=== PATIENT | female | born 1955 | race Caucasian/White ===

== ENCOUNTER 2018-08-03 22:29 | Inpatient (IN) | payer BC, OTHER ==
[~2018-08-03] VITALS: Ht 154.9 cm; Wt 65.3 kg
[2018-08-03] MEDS ORDERED: AMLO5TAB9 (23:15)
[2018-08-03] MEDS ORDERED: BENA20TA7 (23:15)
--- NOTE | 2018-08-03 23:22 | ED Cough/URI ---
General Chief Complaint: Fever-Adult/Adol Stated Complaint: LOW BLOOD PRESSURE,FEVER Source: patient Exam Limitations: no limitations History of Present Illness Date Seen by Provider: Aug 03, 2018 Time Seen by Provider: 23:12 Initial Comments The patient resents to ER by private conveyance with chief complaint of feeling faint today nearly passing out according to her significant other. She also had a fever of 101 per her to the gave Tylenol. And then they checked her blood pressure and found it to be low when they stood her up and got even lower down to the 70 systolic range so they decided to come and get checked out. Her fever did go away with Tylenol. She's had an occasional dry cough. No wheezing or shortness of breath. No chest pain. She does have some nausea but no vomiting. No diarrhea or constipation. Last bowel movement was yesterday normal formed. She did have a sick exposure to a nephew who had RSV all last week. Allergies and Home Medications Allergies Coded Allergies: No Known Drug Allergies (Unverified , 08/03/18) Patient Home Medication List Home Medication List Reviewed: Yes Review of Systems Review of Systems Constitutional: No chills, No fever; malaise EENTM: No ear discharge, No ear pain, No blurred vision, No dental problems Respiratory: No cough, No short of breath Cardiovascular: No chest pain, No edema Gastrointestinal: No abdominal pain, No constipation, No nausea, No vomiting Musculoskeletal: No back pain, No joint pain Past Yolgdog-Gpfkvv-Oytihy Hx Patient Social History Alcohol Use: Rarely Uses Recreational Drug Use: No Smoking Status: Never a Smoker 2nd Hand Smoke Exposure: No Recent Foreign Travel: No Contact w/Someone Who Travel: No Recent Hopitalizations: No Immunizations Up To Date Tetanus Booster (TDap): Unknown Seasonal Allergies Seasonal Allergies: No Past Medical History Surgeries: Yes Abdominal, Brain Shunt, Section, Eye Surgery, Neurological Respiratory: No Cardiac: Yes Hypertension Neurological: Yes Brain Tumor, Neuropathy, Spinal Cord Injury Genitourinary: No Gastrointestinal: Yes Gastroesophageal Reflux, Ulcer, Gall Bladder Disease Musculoskeletal: No Endocrine: No HEENT: No Cancer: Yes Brain Did You Recieve Any Treatments: Yes What Type of Treatment Did You: Surgical Intervention Psychosocial: No Integumentary: No Blood Disorders: No Physical Exam Vital Signs - First Documented 08/03/18 23:04 Temp 98.1 Pulse 99 Resp 18 B/P (MAP) 118/55 (76) Pulse Ox 100 O2 Delivery Room Air Capillary Refill : Height: '" Weight: lbs. oz. kg; BMI Method: General Appearance: WD/WN, no apparent distress Eyes: Bilateral Eye Normal Inspection, Bilateral Eye PERRL, Bilateral Eye EOMI HEENT: TMs normal, pharynx normal, other (chronic right facial droop and right thigh [place]) Neck: non-tender, full range of motion, supple, normal inspection Respiratory: chest non-tender, lungs clear, normal breath sounds, no respiratory distress, no accessory muscle use Cardiovascular: normal peripheral pulses, regular rate, rhythm Gastrointestinal: normal bowel sounds, non tender, soft Extremities: normal range of motion, non-tender, normal inspection, no pedal edema, normal capillary refill Neurologic/Psychiatric: alert, normal mood/affect, oriented x 3 Skin: normal color, warm/dry Focused Exam Lactate Level 08/03/18 23:45: Lactic Acid Level 1.78 Lactic Acid Level Laboratory Tests Test 08/03/18 23:45 Lactic Acid Level 1.78 MMOL/L (0.50-2.00) Progress/Results/Core Measures Suspected Sepsis SIRS Temperature: Pulse: Respiratory Rate: Laboratory Tests 08/03/18 23:45: White Blood Count 22.9H Blood Pressure / Mean: 08/03/18 23:45: Lactic Acid Level 1.78 Laboratory Tests 08/03/18 23:45: Creatinine 1.40H, Platelet Count 353, Total Bilirubin 2.2H Results/Orders Lab Results Laboratory Tests Test 08/03/18 23:45 08/04/18 00:47 Range/Units White Blood Count 22.9 H 4.3-11.0 10^3/uL Red Blood Count 4.55 4.35-5.85 10^6/uL Hemoglobin 14.1 11.5-16.0 G/DL Hematocrit 41 35-52 % Mean Corpuscular Volume 90 80-99 FL Mean Corpuscular Hemoglobin 31 25-34 PG Mean Corpuscular Hemoglobin Concent 34 32-36 G/DL Red Cell Distribution Width 12.7 10.0-14.5 % Platelet Count 353 130-400 10^3/uL Mean Platelet Volume 9.4 7.4-10.4 FL Neutrophils (%) (Auto) 94 H 42-75 % Lymphocytes (%) (Auto) 3 L 12-44 % Monocytes (%) (Auto) 3 0-12 % Eosinophils (%) (Auto) 0 0-10 % Basophils (%) (Auto) 0 0-10 % Neutrophils # (Auto) 21.6 H 1.8-7.8 X 10^3 Lymphocytes # (Auto) 0.7 L 1.0-4.0 X 10^3 Monocytes # (Auto) 0.6 0.0-1.0 X 10^3 Eosinophils # (Auto) 0.0 0.0-0.3 10^3/uL Basophils # (Auto) 0.0 0.0-0.1 10^3/uL Neutrophils % (Manual) 94 % Lymphocytes % (Manual) 3 % Monocytes % (Manual) 1 % Band Neutrophils 2 % Blood Morphology Comment NORMAL Sodium Level 134 L 135-145 MMOL/L Potassium Level 3.9 3.6-5.0 MMOL/L Chloride Level 103 98-107 MMOL/L Carbon Dioxide Level 19 L 21-32 MMOL/L Anion Gap 12 5-14 MMOL/L Blood Urea Nitrogen 27 H 7-18 MG/DL Creatinine 1.40 H 0.60-1.30 MG/DL Estimat Glomerular Filtration Rate 38 BUN/Creatinine Ratio 19 Glucose Level 146 H 70-105 MG/DL Lactic Acid Level 1.78 0.50-2.00 MMOL/L Calcium Level 10.1 8.5-10.1 MG/DL Corrected Calcium 10.2 H 8.5-10.1 MG/DL Total Bilirubin 2.2 H 0.1-1.0 MG/DL Aspartate Amino Transf (AST/SGOT) 26 5-34 U/L Alanine Aminotransferase (ALT/SGPT) 30 0-55 U/L Alkaline Phosphatase 74 40-136 U/L C-Reactive Protein High Sensitivity 7.17 H 0.00-0.50 MG/DL Total Protein 6.7 6.4-8.2 GM/DL Albumin 3.9 3.2-4.5 GM/DL Urine Color YELLOW Urine Clarity CLEAR Urine pH 5 5-9 Urine Specific [place] 1.015 L 1.016-1.022 Urine Protein 1+ H NEGATIVE Urine Glucose (UA) NEGATIVE NEGATIVE Urine Ketones NEGATIVE NEGATIVE Urine Nitrite NEGATIVE NEGATIVE Urine Bilirubin NEGATIVE NEGATIVE Urine Urobilinogen NORMAL NORMAL MG/DL Urine Leukocyte Esterase 2+ H NEGATIVE Urine RBC (Auto) NEGATIVE NEGATIVE Urine RBC NONE /HPF Urine WBC 0-2 /HPF Urine Squamous Epithelial Cells 10-25 H /HPF Urine Crystals NONE /LPF Urine Bacteria TRACE /HPF Urine Casts PRESENT /LPF Urine Hyaline Casts 5-10 H /LPF Urine Mucus MODERATE H /LPF Urine Culture Indicated NO Micro Results Microbiology 08/03/18 Influenza Types A,B Antigen (PAN) - Final, Complete My Orders Orders - PEDRO JACQUES Orthostatic Vital Signs (Adult (08/03/18 23:19) Influenza A And B Antigens (08/03/18 23:19) Ondansetron Oral Dissolve Tab (Zofran (08/03/18 23:30) Saline Lock/Iv-Start (08/03/18 23:31) Ns Iv 1000 Ml (Sodium Chloride 0.9%) (08/03/18 23:45) Cbc With Automated Diff (08/03/18 23:31) Comprehensive Metabolic Panel (08/03/18 23:31) Hs C Reactive Protein (08/03/18 23:31) Ua Culture If Indicated (08/03/18 23:31) Blood Culture (08/03/18 23:33) Lactic Acid Analyzer (08/03/18 23:33) Ibuprofen Tablet (Motrin Tablet) (08/03/18 23:45) Manual Differential (08/03/18 23:45) Chest Pa/Lat (2 View) (08/04/18 01:11) Cefepime Injection (Maxipime Injection) (08/04/18 02:30) Medications Given in ED Current Medications Medications Dose Ordered Sig/Chucky Route Start Time Stop Time Status Last Admin Dose Admin Ibuprofen 800 mg ONCE ONCE PO 08/03/18 23:45 08/03/18 23:46 DC 08/03/18 23:49 800 MG Ondansetron HCl 4 mg ONCE ONCE PO 08/03/18 23:30 08/03/18 23:31 DC 08/03/18 23:49 4 MG Sodium Chloride 1,500 ml @ 1,500 mls/hr ONCE ONCE IV 08/03/18 23:45 08/04/18 00:45 DC 08/03/18 23:48 1,500 MLS/HR Vital Signs/I&O 08/03/18 2 23:04 23:30 Temp 98.1 Pulse 99 91 90 108 Resp 18 B/P (MAP) 118/55 (76) 94/73 (80) 89/57 (68) 88/56 (67) Pulse Ox 100 O2 Delivery Room Air Capillary Refill : Progress Note : Time: 02:24 Progress Note Orthostatic vital signs were positive we gave a 30 mL/kg bolus 2 L. Her blood pressure still soft but she's feeling better. Her headache is improved after some ibuprofen. Chest x-ray urine and labs are unrevealing except for possible acute kidney injury however I don't what her baseline is. Her leukocytosis is likely from a virus. She is not really getting any historical clues or physical exam signs. Given her frailty we would just plan to start some cefepime and observe her. We'll keep her fluids going at 1-1/2 times maintenance IV rate. Diagnostic Imaging Diagonstic Imaging: Xray Plain Films/CT/US/NM/MRI: chest (2 view) Comments No acute cardio pulmonary processes noted a 2 view chest x-ray. Reviewed: Reviewed by Me Departure Communication (Admissions) Time/Spoke to Admitting Phy: 02:15 Discussed case lab imaging findings with Dr. Taylor. We are going to put the patient on cefepime IV fluids at 1-1/2 times maintenance and observe her overnight. Impression Primary Impression: Near syncope Additional Impressions: Orthostatic hypotension Sepsis Qualified Codes: A41.9 - Sepsis, unspecified organism Disposition: ADMITTED INPATIENT Condition: Stable Admissions Decision to Admit Reason: Admit from ER (General) Decision to Admit/Date: Aug 04, 2018 Time/Decision to Admit Time: 02:17 Departure-Patient Inst. Referrals: TOBY VAZQUEZ DO (PCP/Family) Primary Care Physician PEDRO JACQUES Aug 03, 2018 23:22
[2018-08-03 23:30] VITALS: BP_SYST 88; BP_SYST 89; BP_SYST 94; BP_DIAS 56; BP_DIAS 57; BP_DIAS 73
[2018-08-03] MEDS ORDERED: ONDANSETRON 4 MG (ZOFRAN) ORAL DISSOLVE TAB PO ONE (23:30)
[2018-08-03] MEDS ORDERED: NS IV 1000 ML 1,500 ML IV ONE (23:45)
[2018-08-03] MEDS ORDERED: IBUPROFEN 800 MG (MOTRIN) TAB PO ONE (23:45)
[2018-08-03 23:59] LABS: BASOPHILS % (AUTO) 0 % (0-10); EOSINOPHILS % (AUTO) 0 % (0-10); HEMATOCRIT 41 % (35-52); HEMOGLOBIN 14.1 G/DL (11.5-16.0); LYMPHOCYTES # (AUTO) 0.7 X 10^3 (1.0-4.0); LYMPHOCYTES % (AUTO) 3 % (12-44); MEAN CORPUSCULAR HEMOGLOBIN 31 PG (25-34); MEAN CORPUSCULAR HGB CONC 34 G/DL (32-36); MEAN CORPUSCULAR VOLUME 90 FL (80-99); MEAN PLATELET VOLUME 9.4 FL (7.4-10.4); MONOCYTES # (AUTO) 0.6 X 10^3 (0.0-1.0); MONOCYTES % (AUTO) 3 % (0-12); NEUTROPHILS # (AUTO) 21.6 X 10^3 (1.8-7.8); NEUTROPHILS % (AUTO) 94 % (42-75); PLATELET COUNT 353 10^3/uL (130-400); RED CELL DISTRIBUTION WIDTH 12.7 % (10.0-14.5); WHITE BLOOD COUNT 22.9 10^3/uL (4.3-11.0)
[2018-08-04] VITALS (27 sets, daily range): BP systolic 85–116; BP diastolic 42–74
[2018-08-04 00:15] LABS: BAND NEUTROPHILS 2 %; LYMPHOCYTES % (MANUAL) 3 %; MONOCYTES % (MANUAL) 1 %; NEUTROPHILS % (MANUAL) 94 %; RBC MORPH NORMAL
[2018-08-04 00:19] LABS: ALBUMIN 3.9 GM/DL (3.2-4.5); BILIRUBIN,TOTAL 2.2 MG/DL (0.1-1.0); CALCIUM 10.1 MG/DL (8.5-10.1); CREATININE SERUM 1.4 MG/DL (0.60-1.30); POTASSIUM 3.9 MMOL/L (3.6-5.0); TOTAL PROTEIN 6.7 GM/DL (6.4-8.2)
--- NOTE | 2018-08-04 00:30 | NUR ---
PT'S PARENT INFORMED OF ANTICIPATED WAIT TIME.
[2018-08-04 00:55] LABS: BILIRUBIN,URINE NEGATIVE (NEGATIVE); CLARITY,URINE CLEAR; COLOR,URINE YELLOW; GLUCOSE, URINE (UA) NEGATIVE (NEGATIVE); KETONES,URINE NEGATIVE (NEGATIVE); LEUKOCYTE ESTERASE ,URINE 2+ (NEGATIVE); NITRITE,URINE NEGATIVE (NEGATIVE); PH,URINE 5 (5-9); PROTEIN,URINE 1+ (NEGATIVE); UROBILINOGEN,URINE NORMAL (NORMAL)
[2018-08-04 01:02] LABS: BACTERIA,URINE TRACE /HPF; WBC,URINE 0-2 /HPF
[2018-08-04] MEDS ORDERED: CEFEPIME INJECTION 1,000 MG in WATER (STERILE) FOR INJECTION 10 ML IV ONE (02:30)
[2018-08-04] MEDS ORDERED: NS W/KCL 20 MEQ/L 1,000 ML IV ONE (02:43)
--- NOTE | 2018-08-04 02:54 | NUR ---
WHIT SALAS admitted to room CU8-1, with an admitting diagnosis of Near syncope,orthostatic hypotension,Sepsis on 08/04/18 from ED via wc, accompanied by .WHIT SALAS introduced to surroundings, call light, bed controls, phone, TV, temperature control, lights, meal times, smoking policy, visitor policy, side rail policy, bathrooms and showers. Patient Rights given to patient in the handbook. WHIT SALAS verbalizes understanding that [facility] is not responsible for the loss or damage to any personal effects or valuables that are kept in the patients possession during their hospitalization. The following Patient Care Plans were discussed with the : Discharge Planning, pain,activity, and room orientating. WHIT SALAS verbalizes understanding of Interdisciplinary Patient Education. Patient and/or family were informed about the Rapid Response Team and its purpose.
[2018-08-04 03:35] LABS: BASOPHILS % (AUTO) 0 % (0-10); EOSINOPHILS # (AUTO) 0.2 10^3/uL (0.0-0.3); EOSINOPHILS % (AUTO) 1 % (0-10); HEMATOCRIT 35 % (35-52); HEMOGLOBIN 11.6 G/DL (11.5-16.0); LYMPHOCYTES # (AUTO) 0.8 X 10^3 (1.0-4.0); LYMPHOCYTES % (AUTO) 4 % (12-44); MEAN CORPUSCULAR HEMOGLOBIN 31 PG (25-34); MEAN CORPUSCULAR HGB CONC 34 G/DL (32-36); MEAN CORPUSCULAR VOLUME 92 FL (80-99); MEAN PLATELET VOLUME 9.3 FL (7.4-10.4); MONOCYTES # (AUTO) 0.6 X 10^3 (0.0-1.0); MONOCYTES % (AUTO) 3 % (0-12); NEUTROPHILS # (AUTO) 18.8 X 10^3 (1.8-7.8); NEUTROPHILS % (AUTO) 93 % (42-75); PLATELET COUNT 267 10^3/uL (130-400); RED CELL DISTRIBUTION WIDTH 12.8 % (10.0-14.5); WHITE BLOOD COUNT 20.4 10^3/uL (4.3-11.0)
[2018-08-04 03:52] LABS: CALCIUM 8.6 MG/DL (8.5-10.1); CREATININE SERUM 1.12 MG/DL (0.60-1.30); POTASSIUM 4.3 MMOL/L (3.6-5.0)
--- NOTE | 2018-08-04 05:24 | Pulmonary Consultation ---
History of Present Illness History of Present Illness Date of Consultation 08/04/18 05:18 Time Seen by Provider: 05:18 Date of Admission History of Present Illness 63yo presented to ED secondary to syncope, fever, nausea and erythematous rash. PT did not hit her head. no previous episodes like this. Denies CP, SOB, No vomiting or Diarrhea. Recent exposure to nephew with RSV. Since ICU admission pt has had hypotension with SBP in the upper 80's, 90's. Allergies and Home Medications Allergies Coded Allergies: No Known Drug Allergies (Unverified , 08/03/18) Past Ngknrur-Vrzjvs-Eultaj Hx Patient Social History Alcohol Use: Rarely Uses Recreational Drug Use: No Smoking Status: Never a Smoker 2nd Hand Smoke Exposure: No Recent Foreign Travel: No Contact w/Someone Who Travel: No Recent Infectious Disease Expo: No Recent Hopitalizations: No Immunizations Up To Date Tetanus Booster (TDap): Unknown Date of Influenza Vaccine: Feb 11, 2018 Seasonal Allergies Seasonal Allergies: No Past Medical History Surgeries: Yes Abdominal, Brain Shunt, Section, Eye Surgery, Neurological Respiratory: No Cardiac: Yes Hypertension Neurological: Yes Brain Tumor, Neuropathy, Spinal Cord Injury : No Genitourinary: No Gastrointestinal: Yes Gastroesophageal Reflux, Ulcer, Gall Bladder Disease Musculoskeletal: No Endocrine: No HEENT: No Cancer: Yes Brain Did You Recieve Any Treatments: Yes What Type of Treatment Did You: Surgical Intervention Psychosocial: No Integumentary: No Blood Disorders: No Family Medical History Diabetes mellitus 19 MOTHER, Onset:60 years & older FH: macular degeneration 19 MOTHER, Onset:60 years & older FH: skin cancer 19 FATHER, , Onset:60 years & older Hypertension 19 MOTHER, Onset:Unknown G8 BROTHER, Onset:Unknown G8 SISTER, Onset:Unknown Sepsis Event Evaluation Height, Weight, BMI Height: 5'1.00" Weight: 139lbs. 1.0oz. 63.668289la; 26.0 BMI Method:Stated Exam Exam Vital Signs Date Time Temp Pulse Resp B/P (MAP) Pulse Ox O2 Delivery O2 Flow Rate FiO2 08/04/18 04:00 68 15 98/74 (82) 95 Room Air 08/04/18 03:30 97 Room Air 08/04/18 03:26 97 Room Air 08/04/18 03:24 99.0 70 14 107/42 97 Room Air 08/04/18 03:06 70 08/04/18 03:00 99.0 70 14 107/42 (63) 97 Room Air 08/04/18 02:44 97.2 71 18 102/66 (78) 97 Room Air 08/03/18 23:30 91 94/73 (80) 90 89/57 (68) 108 88/56 (67) 08/03/18 23:04 98.1 99 18 118/55 (76) 100 Room Air I & O 08/04/18 07:00 Intake Total 1510 ml Output Total 250 ml Balance 1260 ml Height & Weight Height: 5'1.00" Weight: 139lbs. 1.0oz. 63.191246xr; 26.0 BMI Method:Stated General Appearance: Anxious Capillary Refill: Less Than 3 Seconds Gastrointestinal: normal bowel sounds, non tender, soft Results Lab Laboratory Tests 08/03/18 23:45 08/04/18 03:28 Assessment/Plan Assessment/Plan SIRS r/o Sepsis - doubt PNA, - probably viral etiology -Continue Cefepime for now -Change to inpatient ICU status -Arriaga cultures pending -MRSA swab, influenza is negative -check urine strep, and Nausea - no abdominal pain -Check RUQ US Acute renal failure with metabolic acidosis -IVF -Monitor Hypotension probably secondary to dehydration -Give another liter bolus of LR x 1 now Erythematous pleuritic rash with some petechia from chest down to legs- probably secondary to viral etiology -Will start solumedrol, Benadryl, Pepcid for possible anaphylactic reaction -pt denies dysphagia Hx of benign acoustic neuroma LORRAINE ELLIS DO Aug 04, 2018 05:24
[2018-08-04] MEDS: NS IV 1000 ML 1,000 ML IV SCH ×5 (05:27→20:15)
[2018-08-04] MEDS: NOREPINEPHRINE 4 MG in NS (IVPB) 250 ML IV SCH ×2 (05:27→19:20)
[2018-08-04] MEDS: NS W/KCL 20 MEQ/L 1,000 ML IV SCH ×4 (05:28→22:23)
[2018-08-04] MEDS ORDERED: NS IV ONE (05:30)
[2018-08-04] MEDS ORDERED: methylPREDNISolone 125 MG (Solu-MEDROL) VIAL IV ONE (05:30)
[2018-08-04] MEDS ORDERED: LACTATED RINGERS 1,000 ML IV SCH (05:30)
[2018-08-04] MEDS ORDERED: diphenhydrAMINE 50 MG/ML INJ (BENADRYL) ONE (05:33)
[2018-08-04] MEDS ORDERED: methylPREDNISolone 125 MG (Solu-MEDROL) VIAL ONE (05:33)
[2018-08-04] MEDS ORDERED: FAMOTIDINE 20MG/2ML IV (PEPCID) ONE (05:34)
[2018-08-04] MEDS: diphenhydrAMINE 50 MG/ML INJ (BENADRYL) IVP SCH ×3 (05:42→17:14)
[2018-08-04] MEDS: FAMOTIDINE 20MG/2ML IV (PEPCID) IVP SCH ×2 (05:42→20:21)
[2018-08-04] MEDS ORDERED: methylPREDNISolone 40 MG/ML (Solu-MEDROL) VIAL IV SCH ×2 (06:00→11:30)
[2018-08-04] MEDS: MAGNESIUM 1 GM/100 ML IVPB 100 ML IV SCH (06:17)
[2018-08-04] MEDS: POTASSIUM CL 10MEQ/50ML IVPB 50 ML IV SCH (06:17)
[2018-08-04] MEDS: KCL 20 MEQ TAB (K-DUR) PO SCH (06:17)
[2018-08-04 06:31] LABS: FREE T4 (FREE THYROXINE) 1.09 NG/DL (0.70-1.48)
--- NOTE | 2018-08-04 06:57 | Diagnostic Imaging Report ---
INDICATION: Fever COMPARISON: None. FINDINGS: Frontal and lateral views the chest demonstrate clear lungs bilaterally. The heart size is normal. There is no pneumothorax. Osseous structures are normal. SHAPER SETTER shunt line is seen on the left. IMPRESSION: No acute findings. Normal chest. Dictated by: Dictated on workstation # [id number]
--- NOTE | 2018-08-04 08:00 | NUR ---
CALLED DR ELLIS TO REPORT LOW BP'S, SEE FLOWSHEET, MAP LESS THAN 65. HE GAVE AN ORDER FOR A ONE TIME BOLUS OF LR, SHE RESPONDED WELL TO IT. MAPS GREATER THAN 65. CORRESPONDED WITH DR ELLIS AT 1040 DUE TO BP BEING 85/50. PATIENT IS ALERT GCS 15. NO COMPLAINTS. RESTING ON ROOM AIR. DR ELLIS ORDERED ANOTHER LITER OF LR, START SOLUCORTEF 100MG Q6 AND ORDERED A LACTIC ACID. WILL CONTINUE TO MONITOR.
[2018-08-04] MEDS: CEFEPIME INJECTION 1,000 MG in WATER (STERILE) FOR INJECTION 10 ML IV SCH ×3 (09:38→20:21)
[2018-08-04] MEDS: LACTATED RINGERS 1,000 ML IV SCH ×2 (10:51→20:15)
[2018-08-04] MEDS ORDERED: BENA20TA7 PO (11:07)
[2018-08-04] MEDS ORDERED: LIFI1DRO OU (11:07)
[2018-08-04] MEDS: HYDROCORTISONE 100 MG/2 ML (Solu-CORTEF) VIAL IV SCH ×2 (11:08→17:35)
[2018-08-04] MEDS ORDERED: AMLO5TAB9 PO (11:08)
--- NOTE | 2018-08-04 11:10 | History & Physical-Hospitalist ---
History of Present Illness HPI/Chief Complaint Mrs. Singletary is a 63-year-old white female who reported that she felt well when she went to bed Sunday evening. She woke up Sunday feeling quite weak. She went to the bathroom feeling feverish and reporting some myalgia with low-grade headache. We'll standing at the sink became faint and passed out. Her was there was able to help her to the ground such that there was no reported trauma. There was no reported seizure-type activity. A family member is I believe intensive care unit nurse and they did get blood pressures which were in the 70-80 systolic range. She noted feeling itchy as well and by the afternoon had noted a rash on her chest and abdomen spreading down to her thighs. She reportedly had a temperature of 101 with some mild chills but denied Reiger's. Blood pressure continued to be low and she finally consented to being brought to the emergency room where was noted that she was hypotensive with a white count of 22,000 and left shift. She apparently had exposure to an infant diagnosed with RSV roughly 7-10 days ago that did require hospitalization. She's not aware of any other sick contacts. 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 She's had no previous history of TRANSIT SPECIALIST shunt infection and denied any problems with pain around her shunt. 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 She's had no previous problems infection and reports that she had been in her usual state of health with stable neurologic status prior to Sunday evening. Date Seen 08/04/18 Time Seen by a Provider: 07:30 Attending Physician Pepe Taylor MD PCP Rochelle Chavarria DO Referring Physician Date of Admission Aug 04, 2018 at 02:35 Home Medications & Allergies Home Medications Reviewed patient Home Medication Reconciliation performed by pharmacy medication reconciliations coating technician and/or nursing. Patients Allergies have been reviewed. Allergies Allergies Coded Allergies No Known Drug Allergies (Unverified08/03/18) Past Ktpgpit-Muzyig-Hojvql Hx Past Med/Social Hx: Reviewed and Corrections made Patient Social History Alcohol Use: Rarely Uses Recreational Drug Use: No Smoking Status: Never a Smoker 2nd Hand Smoke Exposure: No Recent Foreign Travel: No Contact w/other who traveled: No Recent Hopitalizations: No Recent Infectious Disease Expo: No Immunizations Up To Date Tetanus Booster (TDap): Unknown Date of Influenza Vaccine: Feb 11, 2018 Seasonal Allergies Seasonal Allergies: No Past Medical History Surgeries: Abdominal, Brain Shunt, Section, Eye Surgery, Neurological Cardiac: Hypertension Neurological: Brain Tumor, Neuropathy, Spinal Cord Injury : No Gastrointestinal: Gastroesophageal Reflux, Ulcer, Gall Bladder Disease Cancer: Brain Did You Recieve Any Treatments: Yes What Type of Treatment Did You: Surgical Intervention History of Blood Disorders: No Family History Diabetes mellitus 19 MOTHER, Onset:60 years & older FH: macular degeneration 19 MOTHER, Onset:60 years & older FH: skin cancer 19 FATHER, , Onset:60 years & older Hypertension 19 MOTHER, Onset:Unknown G8 BROTHER, Onset:Unknown G8 SISTER, Onset:Unknown Review of Systems Constitutional: chills, fever, malaise Respiratory: see HPI; No cough, No dyspnea on exertion, No hemoptysis, No orthopnea, No phlegm, No short of breath Cardiovascular: No chest pain, No edema, No Hx of Intervention, No palpitations , No syncope, No vascular heart diseas, No other Genitourinary: No dysuria; frequency (Reports this is chronic and no different than her norm.); No hematuria, No hesitancy, No incontinence, No pain, No other Physical Exam Physical Exam Vital Signs Vital Signs - First Documented 08/03/18 23:04 Temp 98.1 Pulse 99 Resp 18 B/P (MAP) 118/55 (76) Pulse Ox 100 O2 Delivery Room Air Capillary Refill : Less Than 3 Seconds Height, Weight, BMI Height: 5'1.00" Weight: 139lbs. 1.0oz. 63.284716ws; 26.0 BMI Method:Stated General Appearance: No Apparent Distress, WD/WN HEENT: Other (No tenderness noted over the TRANSIT SPECIALIST shunt right enucleation of the eye left eye unremarkable) Neck: Full Range of Motion, Normal Inspection Respiratory: Chest Non Tender, Lungs Clear, Normal Breath Sounds, No Accessory Muscle Use, No Respiratory Distress Cardiovascular: Regular Rate, Rhythm, No Edema, No Gallop, No JVD, No Murmur, Normal Peripheral Pulses Gastrointestinal: Normal Bowel Sounds, No Organomegaly, No Pulsatile Mass, Non Tender, Soft Extremity: Normal Capillary Refill, Normal Inspection, Normal Range of Motion, Non Tender, No Calf Tenderness, No Pedal Edema Skin: Rash (Erythematous maculopapular eruption spares the face palms and soles is: Resting over the back without evidence for ulceration probably involving the thighs in regards to lower extremity mucous membranes are not involved) Results Results/Procedures Labs Laboratory Tests 08/03/18 23:45 08/04/18 03:28 Patient resulted labs reviewed. Assessment/Plan Admission Diagnosis 1. Febrile illness with non-petechial rash most compatible with an underlying viral infection with secondary significant leukocytosis. The patient has no evidence for encephalitis meningitis or findings to suggest TRANSIT SPECIALIST shunt infection but will continue to monitor. 2. Syncope secondary to orthostatic hypotension aggravated by number 1 in individual on antihypertensive medication. 3. Acute kidney injury secondary to number 1 and 2 improved overnight with IV fluids will continue. 4. Hypertension we'll be holding antihypertensive medication unless the patient become significantly hypertensive. Admission Status: Inpatient Order (span 2 midnights) Reason for Inpatient Admission: See admission diagnosis Clinical Quality Measures DVT/VTE Risk/Contraindication: Risk Factor Score Per Nursin RFS Level Per Nursing on Admit: 2=Moderate Copy Copies To 1: ROCHELLE CHAVARRIA MARK D MD Aug 04, 2018 11:10
--- NOTE | 2018-08-04 11:11 | NUR ---
Patient had the Amlodipine and Benazepril. She states she took the eye drops. Matched external medication history.
--- NOTE | 2018-08-04 12:01 | NUR ---
corresponded to Dr Finnegan that patients lactic acid is elevated at 2.86. Addendum: 08/04/18 at 1217 by STEPHAN SAUER RN DR FINNEGAN ORDERED ONE MORE FLUID BOLUS AND TO MAINTAIN HER CURRENT FLUIDS AT 150CC/HR
[2018-08-04] MEDS: IBUPROFEN 800 MG (MOTRIN) TAB PO PRN (19:22)
[2018-08-05] VITALS (24 sets, daily range): BP systolic 111–151; BP diastolic 55–98
[2018-08-05] MEDS: diphenhydrAMINE 50 MG/ML INJ (BENADRYL) IVP SCH ×5 (00:09→23:18)
[2018-08-05] MEDS: HYDROCORTISONE 100 MG/2 ML (Solu-CORTEF) VIAL IV SCH ×5 (00:09→23:18)
[2018-08-05] MEDS: NS IV 1000 ML 1,000 ML IV SCH ×4 (00:34→13:41)
--- NOTE | 2018-08-05 01:30 | NUR ---
This proposal lead writer heard patient coughing from the hernandez, went in room to assess the patient at this time. Did elevate HOB and gave patient a drink of water.
[2018-08-05] MEDS: ACETAMINOPHEN 500 MG TAB (TYLENOL) PO PRN ×2 (02:00→17:50)
--- NOTE | 2018-08-05 02:02 | NUR ---
Patient called this group underwriter to the room, upon entering patient appears to be in distress rocking mildly back and forth in the bed saying that she is having shortness of breath. RR 18, O2 sat 100% on room air. Listened to patient lung sounds Posterior and Anterior, clear in all crockett. Patient stated that she just doesn't feel "right" and feels very sick. T 98.9, c/o headache 1000mg Tylenol administered. Call placed to the lab for am labs to be drawn early and Chest X-ray done at this time. Call to E ICU and spoke to Trang ZUÑIGA, explained situation to her and she will relay this report to Dr Epperson the E ICU Dr rendon.
--- NOTE | 2018-08-05 02:03 | NUR ---
Placed Pt on 2L oxygen by NC at this time.
[2018-08-05 02:20] LABS: BASOPHILS % (AUTO) 0 % (0-10); EOSINOPHILS % (AUTO) 0 % (0-10); HEMATOCRIT 29 % (35-52); LYMPHOCYTES # (AUTO) 0.6 X 10^3 (1.0-4.0); LYMPHOCYTES % (AUTO) 3 % (12-44); MEAN CORPUSCULAR HEMOGLOBIN 32 PG (25-34); MEAN CORPUSCULAR HGB CONC 35 G/DL (32-36); MEAN CORPUSCULAR VOLUME 92 FL (80-99); MEAN PLATELET VOLUME 9.2 FL (7.4-10.4); MONOCYTES # (AUTO) 0.7 X 10^3 (0.0-1.0); MONOCYTES % (AUTO) 3 % (0-12); NEUTROPHILS # (AUTO) 22.6 X 10^3 (1.8-7.8); NEUTROPHILS % (AUTO) 94 % (42-75); PLATELET COUNT 258 10^3/uL (130-400); RED CELL DISTRIBUTION WIDTH 13.1 % (10.0-14.5)
[2018-08-05] MEDS: CEFEPIME INJECTION 1,000 MG in WATER (STERILE) FOR INJECTION 10 ML IV SCH ×4 (02:24→22:08)
[2018-08-05] MEDS: LACTATED RINGERS 1,000 ML IV SCH (02:34)
[2018-08-05 02:40] LABS: BUN/CREATININE RATIO 17; CALCIUM 8.9 MG/DL (8.5-10.1); CARBON DIOXIDE 16 MMOL/L (21-32); CHLORIDE 118 MMOL/L (98-107); CREATININE SERUM 0.82 MG/DL (0.60-1.30); GFR ESTIMATED > 60; GLUCOSE 168 MG/DL (70-105); MAGNESIUM 1.5 MG/DL (1.8-2.4); POTASSIUM 4.2 MMOL/L (3.6-5.0); SODIUM 143 MMOL/L (135-145)
[2018-08-05] MEDS: MAGNESIUM 1 GM/100 ML IVPB 100 ML IV SCH ×3 (03:24→04:22)
[2018-08-05] MEDS: POTASSIUM CL 10MEQ/50ML IVPB 50 ML IV SCH (04:22)
[2018-08-05] MEDS: KCL 20 MEQ TAB (K-DUR) PO SCH (04:23)
[2018-08-05] MEDS ORDERED: POT PHOS/NA PHOS (K-PHOS NEUTRAL) PO ONE (04:30)
[2018-08-05] MEDS ORDERED: PHARMACY TO DOSE IV SCH (04:45)
[2018-08-05] MEDS ORDERED: SODIUM PHOSPHATE INJ 30 MM in NS (IVPB) 250 ML IV ONE (04:45)
[2018-08-05] MEDS ORDERED: MAGNESIUM 1 GM/100 ML IVPB 100 ML IV SCH (04:45)
--- NOTE | 2018-08-05 04:49 | Pulmonary Progress Note ---
Subjective Time Seen by a Provider: 07:35 Subjective/Events-last exam Hypotension now improved s/p aggressive IVF. Sepsis Event Evaluation Height, Weight, BMI Height: 5'1.00" Weight: 139lbs. 1.0oz. 63.036141hp; 26.0 BMI Method:Stated Focused Exam Lactate Level 08/03/18 23:45: Lactic Acid Level 1.78 08/04/18 11:25: Lactic Acid Level 2.86*H 08/04/18 13:25: Lactic Acid Level 1.81 Exam Exam Vital Signs Date Time Temp Pulse Resp B/P (MAP) Pulse Ox O2 Delivery O2 Flow Rate FiO2 08/05/18 03:25 96 Nasal Cannula 2.00 08/05/18 03:25 99.7 08/05/18 03:00 76 10 127/62 (83) 95 Nasal Cannula 2.00 08/05/18 02:03 Nasal Cannula 2.00 08/05/18 02:00 75 11 129/74 (92) 99 Room Air 08/05/18 01:59 98.9 08/05/18 01:00 78 08/05/18 01:00 78 11 115/57 (76) 94 Room Air 08/05/18 00:23 117/60 (79) 125/55 (78) 131/72 (91) 08/05/18 00:00 85 10 111/56 (74) 92 Room Air 08/04/18 23:35 99.1 08/04/18 23:10 97 Room Air 08/04/18 23:07 84 9 112/58 (76) 92 Room Air 08/04/18 22:00 88 18 116/60 (78) 92 Room Air 08/04/18 21:00 92 18 103/55 (71) 96 Room Air 08/04/18 20:00 98 Room Air 08/04/18 20:00 94 18 107/57 (74) 96 Room Air 08/04/18 19:15 100.2 95 12 108/65 (79) 97 Room Air 08/04/18 19:00 93 14 97 Room Air 08/04/18 19:00 93 08/04/18 17:20 87 22 106/48 (67) 93 Room Air 08/04/18 17:00 89 23 99/46 (63) 92 Room Air 08/04/18 16:00 98 Room Air 08/04/18 16:00 90 34 99/49 (66) 94 Room Air 08/04/18 15:00 86 11 100/54 (69) 94 Room Air 08/04/18 14:33 97.7 08/04/18 14:00 80 15 101/55 (70) 96 Room Air 08/04/18 13:08 87 08/04/18 13:00 86 11 116/51 (72) 93 Room Air 08/04/18 12:21 97.0 08/04/18 12:00 67 23 100/57 (71) 99 Room Air 08/04/18 12:00 98 Room Air 08/04/18 11:00 68 17 85/49 (61) 92 Room Air 08/04/18 10:00 75 17 85/47 (60) 96 Room Air 08/04/18 09:00 75 15 111/59 (76) 96 Room Air 08/04/18 08:22 65 18 95/56 (69) 98 Room Air 08/04/18 08:00 98 Room Air 08/04/18 07:09 71 08/04/18 07:00 66 23 90/52 (65) 96 Room Air 08/04/18 06:00 73 16 103/48 (66) 97 Room Air 08/04/18 05:30 66 16 90/45 (60) 99 Room Air 08/04/18 05:00 94 14 101/50 (67) 96 Room Air I & O 08/05/18 07:00 Intake Total 4070 ml Output Total 2800 ml Balance 1270 ml Height & Weight Height: 5'1.00" Weight: 139lbs. 1.0oz. 63.160127vu; 26.0 BMI Method:Stated General Appearance: No Apparent Distress, WD/WN HEENT: Other Neck: Full Range of Motion, Normal Inspection Respiratory: Chest Non Tender, Lungs Clear, Normal Breath Sounds, No Accessory Muscle Use, No Respiratory Distress Cardiovascular: Regular Rate, Rhythm, No Edema, No Gallop, No JVD, No Murmur, Normal Peripheral Pulses Capillary Refill: Less Than 3 Seconds Gastrointestinal: normal bowel sounds, non tender, soft Extremity: Normal Capillary Refill, Normal Inspection, Normal Range of Motion, Non Tender, No Calf Tenderness, No Pedal Edema Neurologic/Psychiatric: Alert Skin: Normal Color, Warm/Dry, Rash (Erythematous maculopapular eruption spares the face palms and soles is: Resting over the back without evidence for ulceration probably involving the thighs in regards to lower extremity mucous membranes are not involved) Lymphatic: No Adenopathy Results Lab Laboratory Tests 08/03/18 23:45 08/04/18 03:28 08/05/18 02:12 Assessment/Plan Assessment/Plan Severe Sepsis - doubt PNA, -Continue Cefepime, vancomycin -Arriaga cultures pending -MRSA swab, influenza is negative - urine strep, and legionella Ag is negative Nausea - no abdominal pain - RUQ US pending Hypotension -Now improved after aggressive IVF yesterday -Monitor Acute renal failure with metabolic acidosis -IVF -Monitor Erythematous pleuritic rash with some petechia from chest down to legs- probably secondary to viral etiology -solumedrol, Benadryl, Pepcid for possible anaphylactic reaction -pt denies dysphagia 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 Hx of benign acoustic neuroma LORRAINE ELLIS DO Aug 05, 2018 04:49
[2018-08-05] MEDS ORDERED: VANCOMYCIN INJECTION 1,000 MG in NS (IVPB) 250 ML IV SCH (05:00)
[2018-08-05] MEDS ORDERED: VANCOMYCIN INJECTION 1GM (OMNI 250 ML IV ONE ×2 (05:16→05:17)
[2018-08-05] MEDS ORDERED: VANCOMYCIN 1000 MG/VIAL ONE (05:17)
[2018-08-05] MEDS ORDERED: NS (IVPB) 250 ML ONE (05:17)
[2018-08-05] MEDS ORDERED: VANCOMYCIN 500 MG/NS 100 ML IV NR ×2 (06:48)
--- NOTE | 2018-08-05 06:56 | NUR ---
PHARMACY TO DOSE VANCOMYCIN: BASED ON IBW 54.5 & SCr 1; EST CrCl 54 LOADING DOSE: 1,500 MG ([address] ELLIS + ADDITIONAL 500 MG ORDERED BY PHARMACY) MAIN. DOSE: 1,000 MG DAILY VANCOMYCIN TROUGH ORDERED FOR 08/08/18 06:00. IF TROUGH IS GREATER THAN 20 HOLD 08/08/18 07:00 DOSE.
--- NOTE | 2018-08-05 07:04 | Diagnostic Imaging Report ---
CLINICAL INDICATION: Patient with dyspnea. EXAM: Portable chest x-ray upright view. COMPARISONS: Chest x-ray dated 08/04/2018. FINDINGS: Lungs/pleura: Lungs are clear. There is no pneumothorax. There is no pleural effusion. Mediastinum: Unremarkable. Pulmonary vasculature: Unremarkable. Heart: Unremarkable. Bones/extrathoracic soft tissue: There are small degenerative spurs involving the thoracic spine. IMPRESSION: There is no radiographic evidence of acute cardiopulmonary process. Dictated by: Dictated on workstation # [id number]
[2018-08-05] MEDS: NOREPINEPHRINE 4 MG in NS (IVPB) 250 ML IV SCH ×2 (08:08→22:09)
[2018-08-05] MEDS: FAMOTIDINE 20MG/2ML IV (PEPCID) IVP SCH ×2 (08:11→22:08)
--- NOTE | 2018-08-05 09:27 | Diagnostic Imaging Report ---
PROCEDURE: US abdomen complete. TECHNIQUE: Multiple real-time grayscale images were obtained over the abdomen in various projections. INDICATION: Sepsis, history of gallstones. FINDINGS: The gallbladder is normal. No stone or sludge. The biliary ducts are nondilated. Pancreas was obscured by bowel gas. The spleen partially obscured. The visualized portions of the aorta and IVC unremarkable. Kidneys bilaterally normal in size, cortical thickness and echotexture without obstruction. There is no ascites. There is no fluid collection. IMPRESSION: Unremarkable abdominal ultrasound. Dictated by: Dictated on workstation # [id number]
[2018-08-05] MEDS: ACYCLOVIR INJECTION 800 MG in NS (IVPB) 250 ML IV SCH ×2 (12:27→22:09)
[2018-08-05] MEDS ORDERED: KCL 10 MEQ TAB (MICRO K) PO NR (12:30)
[2018-08-05] MEDS ORDERED: FUROSEMIDE 40 MG/4 ML INJ (LASIX) IVP NR (12:30)
--- NOTE | 2018-08-05 15:53 | Physical Therapy Evaluation ---
PT Evaluation-General Medical Diagnosis Admission Date Aug 04, 2018 at 02:35 Medical Diagnosis: sepsis; syncopal episode Onset Date: Aug 03, 2018 Therapy Diagnosis Therapy Diagnosis: weakness; abn gait Height/Weight Height (Feet): 5 Height (Inches): 1.00 Weight (Pounds): 142 Weight (Ounces): 9.0 Precautions Precautions/Isolations: Fall Prevention, Standard Precautions Weight Bear Status Right Lower Extremity: Right Full Weight Bearing Left Lower Extremity: Left Full Weight Bearing Referral Physician: Sivan Reason for Referral: Evaluation/Treatment Medical History Pertinent Medical History: GERD, HTN Additional Medical History 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 Reviewed History: Yes Social History Home: Single Level Current Living Status: Spouse Entry Into Home: Stairs Without Railing Prior/Core FIM Prior Level of Function Therapy Code Descriptions/Definitions Functional [place] Measure: 0=Not Assessed/NA 4=Minimal Assistance 1=Total Assistance 5=Supervision or Setup 2=Maximal Assistance 6=Modified [place] 3=Moderate Assistance 7=Complete [place] Therapy Quality Codes: 6 Independent with activity with or without an assistive device 5 Patient requires set up or clean up by helper. Patient completes activity by themselves 4 Supervision or touching assist (CGA). [place] provide cues , steadying assist 3 The helper provides less than half the effort to complete the activity 2 The helper provides more than half the effort to complete the activity 1 Dependent. The helper does all the effort to complete an activity 7 Patient refused to complete or attempt activity 9 The patient did not perform the activity before the current illness or injury 88 Not attempted due to Medical conditions or safety concerns Functional Abilities and Goals: Independent: Patient completed the activities by him/herself, with or without an assistive device, with no assistance from a helper. Needed Some Help: Patient needed partial assistance from another person to complete activities. Dependent: A helper completed the activities for the patient. Unknown: Not Applicable: Bed Mobility: 7 Transfers (B,C,W/C) (FIM): 7 Gait: 7 (pt reports she tends to furniture walk and her balance/equilibrium has been bad since her surgery) Stairs: 5 Indoor Mobility (Ambulation): Independent Stairs: Needed Some Help Prior Devices Use: Walker (cane) pt reports she is active in her home and works outdoors as able. PT Evaluation-Current Subjective pt agreeable; wants to get up to walk Pain Numeric Pain Scale: 0-No Pain Location: No Pain Reported Objective Patient Orientation: Person, Place, Time, Situation Problem Solving: Fair ROM/Strength ROM Lower Extremities wNL Strength Lower Extremities WFL Integumentary/Posture Integumentary refer to nursing notes Bowel Incontinence: No Bladder Incontinence: No Neuromuscular (Tone, Coordination, Reflexes) impaired right due to longstanding surgical intervention Sensory Vision: blind right; Hearing: Functional Hand Dominance: Right Sensation Right Lower Extremit: Intact Sensation Left Lower Extremity: Intact Transfers Therapy Code Descriptions/Definitions Functional [place] Measure: 0=Not Assessed/NA 4=Minimal Assistance 1=Total Assistance 5=Supervision or Setup 2=Maximal Assistance 6=Modified [place] 3=Moderate Assistance 7=Complete [place] Transfers (B, C, W/C) (FIM): 4 (generally CGA for safety) Supine to/from Sit: 5 Sit to/from Stand: 4 bed t/f WC(FIM only if WC use): 4 transferred on/off toilet with SB-CGA. Gait Mode of Locomotion: Walk Anticipated Mode of Locomotion: Walk Gait (FIM): 4 Distance (FIM): 3=150 ft Distance: 200 ft Gait Level of Assist: 4 (CGA for safety) Gait Assistive Device: FWW Comments/Gait Description Pt walked with FWW without LOB; walks with a straight path; pt took steps in her room without the walker and is unsteady with gait without an AD. Balance Sitting Static: Good Sitting Dynamic: Good Standing Static: Fair Standing Dynamic: Fair Assessment/Needs Pt will benefit from short term skilled PT for safety training as well as gait training to progress her to ambulation without assist. Rehab Potential: Good PT Machine Operator General Goals Nursing Home Goals PT Machine Operator General Goals Time Frame: Aug 12, 2018 Transfers (B,C,W/C) (FIM): 7 Gait (FIM): 6 Gait distance (FIM): 3=150 ft Gait Assistive Device: FWW PT Plan Problem List Problem List: Activity Tolerance, Functional Strength, Safety, Balance, Gait, Transfer, Bed Mobility Treatment/Plan Treatment Plan: Continue Plan of Care Treatment Plan: Bed Mobility, Education, Functional Activity Catie, Functional Strength, Gait, Safety, Therapeutic Exercise, Transfers Treatment Duration: Aug 12, 2018 Frequency: 6 times per week Estimated Hrs Per Day: .25 hour per day Patient and/or Family Agrees t: Yes Safety Risks/Education Patient Education: Transfer Techniques, Safety Issues Teaching Recipient: Patient, Family Teaching Methods: Discussion Response to Teaching: Reinforcement Needed Time/GCodes Time In: 1530 Time Out: 1553 Total Billed Treatment Time: 23 Total Billed Treatment visit EVL 23 THOM ANDINO PT Aug 05, 2018 15:53
[2018-08-05] MEDS: IBUPROFEN 800 MG (MOTRIN) TAB PO PRN (16:30)
--- NOTE | 2018-08-05 16:30 | NUR ---
Pastoral care visit.
--- NOTE | 2018-08-05 17:15 | Diagnostic Imaging Report ---
PROCEDURE: MR imaging of the brain without contrast. TECHNIQUE: Multiplanar, multisequence MR imaging of the brain was performed without contrast. INDICATION: Elevated white blood cell count. COMPARISON: None available. FINDINGS: There is susceptibility artifact in the left parietal occipital region from the access port associated with the shunt catheter. Allowing for this artifact, no foci of restricted diffusion to indicate acute infarct. No hydrocephalus. No features of transependymal flow. Encephalomalacia involves the right posterior inferior cerebellum likely from old ischemic injury. No cerebellopontine angle mass. There is architectural distortion in the region of the right internal auditory canal likely from prior surgery. No abnormality in the left internal auditory canal. No sagging of the brainstem. Sella and suprasellar regions are normal in appearance. There are a few scattered periventricular and subcortical white matter T2/FLAIR hyperintensities which are age-appropriate and likely due to sequelae of chronic microvascular ischemic disease. The right globe is atrophic or absent with prosthesis in place. Chronic mucosal thickening of the left paranasal sinus. IMPRESSION: 1. 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 2. Postoperative changes in the right cerebellopontine angle with a large amount of encephalomalacia in the right cerebellar hemisphere, may be from old ischemic infarct or postop change. 3. No CP angle mass is present on the right and there may be soft tissue nodularity within the right internal auditory canal. Correlation with prior outside imaging would be beneficial to assess stability. Dictated by: Dictated on workstation # [id number]
--- NOTE | 2018-08-05 18:41 | Progress Note (SOAP) ---
Subjective Date Seen by a Provider: Aug 05, 2018 Time Seen by a Provider: 12:05 Subjective/Events-last exam Fwup acute sepsis, rash. Had hypotension overnight but is now orthopneic with some swelling in hands and has a new rash to the back of her neck. C/O HAWK intermittently. Focused Exam Lactate Level 08/03/18 23:45: Lactic Acid Level 1.78 08/04/18 11:25: Lactic Acid Level 2.86*H 08/04/18 13:25: Lactic Acid Level 1.81 Objective Exam Vital Signs Date Time Temp Pulse Resp B/P (MAP) Pulse Ox O2 Delivery O2 Flow Rate FiO2 08/05/18 17:00 74 19 131/76 (94) Nasal Cannula 2.00 08/05/18 16:00 99 Nasal Cannula 08/05/18 15:00 105 27 139/81 (100) Nasal Cannula 2.00 08/05/18 14:00 93 32 127/63 (84) Nasal Cannula 2.00 08/05/18 13:00 79 20 131/82 (98) 100 Nasal Cannula 2.00 08/05/18 12:47 90 08/05/18 12:00 99 Nasal Cannula 08/05/18 12:00 71 10 136/75 (95) 97 Nasal Cannula 2.00 08/05/18 12:00 97.5 08/05/18 11:00 73 9 127/66 (86) 96 Nasal Cannula 2.00 08/05/18 10:00 75 17 123/98 (106) 99 Nasal Cannula 2.00 08/05/18 09:00 73 9 138/78 (98) 98 Nasal Cannula 2.00 08/05/18 08:30 72 8 133/64 (87) 99 Nasal Cannula 2.00 08/05/18 08:20 Nasal Cannula 2.00 08/05/18 08:00 96 Nasal Cannula 2.00 08/05/18 08:00 97.7 81 15 129/66 (87) 99 Nasal Cannula 2.00 08/05/18 07:15 61 08/05/18 06:00 82 20 121/63 (82) 97 Nasal Cannula 2.00 08/05/18 05:00 73 20 121/62 (81) 96 Nasal Cannula 2.00 08/05/18 04:00 75 18 117/55 (75) 94 Nasal Cannula 2.00 08/05/18 03:25 96 Nasal Cannula 2.00 08/05/18 03:25 99.7 08/05/18 03:00 76 10 127/62 (83) 95 Nasal Cannula 2.00 08/05/18 02:03 Nasal Cannula 2.00 08/05/18 02:00 75 11 129/74 (92) 99 Room Air 08/05/18 01:59 98.9 08/05/18 01:00 78 08/05/18 01:00 78 11 115/57 (76) 94 Room Air 08/05/18 00:23 117/60 (79) 125/55 (78) 131/72 (91) 08/05/18 00:00 85 10 111/56 (74) 92 Room Air 08/04/18 23:35 99.1 08/04/18 23:10 97 Room Air 08/04/18 23:07 84 9 112/58 (76) 92 Room Air 08/04/18 22:00 88 18 116/60 (78) 92 Room Air 08/04/18 21:00 92 18 103/55 (71) 96 Room Air 08/04/18 20:00 98 Room Air 08/04/18 20:00 94 18 107/57 (74) 96 Room Air 08/04/18 19:15 100.2 95 12 108/65 (79) 97 Room Air 08/04/18 19:00 93 14 97 Room Air 08/04/18 19:00 93 I & O 08/05/18 07:00 Intake Total 4220 ml Output Total 3450 ml Balance 770 ml Capillary Refill : Less Than 3 Seconds General Appearance: No Apparent Distress Neck: Supple Respiratory: Crackles (bases) Cardiovascular: Regular Rate, Rhythm Gastrointestinal: normal bowel sounds, non tender, soft Extremity: Non Tender, No Calf Tenderness Neurologic/Psychiatric: Alert, Oriented x3 Skin: Warm/Dry, Other (fine pustules to back of neck) Results Lab Laboratory Tests 08/05/18 02:12: White Blood Count 24.0H, Red Blood Count 3.11L, Hemoglobin 10.0L, Hematocrit 29L , Mean Corpuscular Volume 92, Mean Corpuscular Hemoglobin 32, Mean Corpuscular Hemoglobin Concent 35, Red Cell Distribution Width 13.1, Platelet Count 258, Mean Platelet Volume 9.2, Neutrophils (%) (Auto) 94H, Lymphocytes (%) (Auto) 3L , Monocytes (%) (Auto) 3, Eosinophils (%) (Auto) 0, Basophils (%) (Auto) 0, Neutrophils # (Auto) 22.6H, Lymphocytes # (Auto) 0.6L, Monocytes # (Auto) 0.7, Eosinophils # (Auto) 0.0, Basophils # (Auto) 0.0, Sodium Level 143, Potassium Level 4.2, Chloride Level 118#H, Carbon Dioxide Level 16L, Anion Gap 9, Blood Urea Nitrogen 14, Creatinine 0.82, Estimat Glomerular Filtration Rate > 60, BUN/ Creatinine Ratio 17, Glucose Level 168H, Calcium Level 8.9, Phosphorus Level 1.0 *L, Magnesium Level 1.5L 08/05/18 15:33: Glucometer 240H Microbiology 08/04/18 Blood Culture - Preliminary, Resulted No growth 08/04/18 MRSA Screen - Final, Complete MRSA not isolated 08/04/18 Urine Culture - Final, Complete NO GROWTH Assessment/Plan Assessment/Plan Assess & Plan/Chief Complaint 1. Acute Sepsis--on Maxipime/Vanc and pancultures negative so far, may need LP due to shunt and ongoing elevated WBC count 2. Rash--lower extremity rash could have been drug induced as patient remembered she was taking amoxil prior to the onset of this rash but also viral etiology still a possibility 3. New Vesicular Rash to Nape of Neck--cover with zovirax, Check MRI as may need to consider LP 4. Hypotension--resolved after IVFs 5. Orthopnea/Edema of hands--low dose IV lasix x1 dose with potassium x1 dose Clinical Quality Measures DVT/VTE Risk/Contraindication: Risk Factor Score Per Nursin RFS Level Per Nursing on Admit: 2=Moderate TOBY VAZQUEZ DO Aug 05, 2018 18:41
[2018-08-05] MEDS: NS W/KCL 20 MEQ/L 1,000 ML IV SCH (22:09)
[2018-08-06] VITALS (13 sets, daily range): BP systolic 121–162; BP diastolic 63–90
[2018-08-06 03:59] LABS: BASOPHILS % (AUTO) 0 % (0-10); EOSINOPHILS % (AUTO) 0 % (0-10); HEMATOCRIT 30 % (35-52); LYMPHOCYTES # (AUTO) 0.7 X 10^3 (1.0-4.0); LYMPHOCYTES % (AUTO) 3 % (12-44); MEAN CORPUSCULAR HEMOGLOBIN 31 PG (25-34); MEAN CORPUSCULAR HGB CONC 33 G/DL (32-36); MEAN CORPUSCULAR VOLUME 94 FL (80-99); MEAN PLATELET VOLUME 9.9 FL (7.4-10.4); MONOCYTES # (AUTO) 0.8 X 10^3 (0.0-1.0); MONOCYTES % (AUTO) 4 % (0-12); NEUTROPHILS # (AUTO) 22.3 X 10^3 (1.8-7.8); NEUTROPHILS % (AUTO) 94 % (42-75); PLATELET COUNT 326 10^3/uL (130-400); RED CELL DISTRIBUTION WIDTH 13.5 % (10.0-14.5); WHITE BLOOD COUNT 23.8 10^3/uL (4.3-11.0)
[2018-08-06 04:14] LABS: BUN/CREATININE RATIO 22; CARBON DIOXIDE 21 MMOL/L (21-32); CHLORIDE 113 MMOL/L (98-107); CREATININE SERUM 0.83 MG/DL (0.60-1.30); GFR ESTIMATED > 60; GLUCOSE 120 MG/DL (70-105); MAGNESIUM 1.9 MG/DL (1.8-2.4); PHOSPHORUS 2.5 MG/DL (2.3-4.7); POTASSIUM 3.4 MMOL/L (3.6-5.0); SODIUM 143 MMOL/L (135-145)
--- NOTE | 2018-08-06 05:05 | Pulmonary Progress Note ---
Subjective Time Seen by a Provider: 05:11 Subjective/Events-last exam Pt appears to be doing better. Sepsis Event Evaluation Height, Weight, BMI Height: 5'1.00" Weight: 142lbs. 9.0oz. 64.088986il; 26.0 BMI Method:Stated Focused Exam Lactate Level 08/03/18 23:45: Lactic Acid Level 1.78 08/04/18 11:25: Lactic Acid Level 2.86*H 08/04/18 13:25: Lactic Acid Level 1.81 Exam Exam Vital Signs Date Time Temp Pulse Resp B/P (MAP) Pulse Ox O2 Delivery O2 Flow Rate FiO2 08/06/18 04:00 54 15 146/82 (103) 96 Nasal Cannula 2.00 08/06/18 04:00 99 Nasal Cannula 2.00 08/06/18 03:00 66 14 142/83 (102) 95 Nasal Cannula 2.00 08/06/18 02:00 61 17 152/77 (102) 95 Nasal Cannula 2.00 08/06/18 01:02 74 08/06/18 01:00 77 20 147/78 (101) 93 Nasal Cannula 2.00 08/06/18 00:00 66 15 147/87 (107) 95 Nasal Cannula 2.00 08/06/18 00:00 99 Nasal Cannula 2.00 08/05/18 23:38 71 13 95 Nasal Cannula 2.00 08/05/18 23:00 99 27 141/78 (99) 96 Room Air 08/05/18 22:00 71 21 137/78 (97) 92 Room Air 08/05/18 21:21 73 17 135/92 (106) 97 Room Air 08/05/18 20:00 99 Room Air 08/05/18 20:00 71 16 119/71 (87) Room Air 08/05/18 19:32 97.6 08/05/18 19:06 94 22 151/89 (109) 97 Room Air 08/05/18 19:00 85 08/05/18 18:00 74 14 132/73 (92) Nasal Cannula 2.00 08/05/18 17:00 74 19 131/76 (94) Nasal Cannula 2.00 08/05/18 16:00 99 Nasal Cannula 08/05/18 15:00 105 27 139/81 (100) Nasal Cannula 2.00 08/05/18 14:00 93 32 127/63 (84) Nasal Cannula 2.00 08/05/18 13:00 79 20 131/82 (98) 100 Nasal Cannula 2.00 08/05/18 12:47 90 08/05/18 12:00 99 Nasal Cannula 08/05/18 12:00 71 10 136/75 (95) 97 Nasal Cannula 2.00 08/05/18 12:00 97.5 08/05/18 11:00 73 9 127/66 (86) 96 Nasal Cannula 2.00 08/05/18 10:00 75 17 123/98 (106) 99 Nasal Cannula 2.00 08/05/18 09:00 73 9 138/78 (98) 98 Nasal Cannula 2.00 08/05/18 08:30 72 8 133/64 (87) 99 Nasal Cannula 2.00 08/05/18 08:20 Nasal Cannula 2.00 08/05/18 08:00 96 Nasal Cannula 2.00 08/05/18 08:00 97.7 81 15 129/66 (87) 99 Nasal Cannula 2.00 08/05/18 07:15 61 08/05/18 06:00 82 20 121/63 (82) 97 Nasal Cannula 2.00 I & O 08/06/18 07:00 Intake Total 1110 ml Output Total 2650 ml Balance -1540 ml Height & Weight Height: 5'1.00" Weight: 142lbs. 9.0oz. 64.792559cs; 26.0 BMI Method:Stated General Appearance: No Apparent Distress HEENT: Other Neck: Supple Respiratory: Crackles (bases) Cardiovascular: Regular Rate, Rhythm Capillary Refill: Less Than 3 Seconds Gastrointestinal: normal bowel sounds, non tender, soft Extremity: Non Tender, No Calf Tenderness Neurologic/Psychiatric: Alert, Oriented x3 Skin: Warm/Dry, Other (fine pustules to back of neck) Lymphatic: No Adenopathy Results Lab Laboratory Tests 08/05/18 02:12 08/06/18 03:25 Assessment/Plan Assessment/Plan Severe Sepsis - doubt PNA, -Cefepime, vancomycin -Arriaga cultures pending -MRSA swab, influenza is negative - urine strep, and legionella Ag is negative Nausea - no abdominal pain - RUQ US pending New Vesicular Rash to Nape of Neck- - Zovirax, - MRI- reviewed Leukocytosis - pt is on steroids HAWK - improved Acute renal failure with metabolic acidosis -Monitor Erythematous pleuritic rash with some petechia from chest down to legs- probably secondary to viral etiology -solumedrol, Benadryl, Pepcid for possible anaphylactic reaction -pt denies dysphagia Pt has a INSULATION CUPOLA CHARGER shunt -Continue broad spectrum abx. Hx of benign acoustic neuroma LORRAINE ELLIS DO Aug 06, 2018 05:05
[2018-08-06] MEDS ORDERED: KCL 20 MEQ TAB (K-DUR) PO ONE ×2 (05:30→08:04)
[2018-08-06] MEDS: CEFEPIME INJECTION 1,000 MG in WATER (STERILE) FOR INJECTION 10 ML IV SCH ×4 (06:06→22:12)
[2018-08-06] MEDS: diphenhydrAMINE 50 MG/ML INJ (BENADRYL) IVP SCH ×3 (06:06→17:56)
[2018-08-06] MEDS: ACYCLOVIR INJECTION 800 MG in NS (IVPB) 250 ML IV SCH ×3 (06:06→20:58)
[2018-08-06] MEDS ORDERED: VANCOMYCIN 1 GM/NS 250 ML IVPB IV SCH ×2 (07:00)
--- NOTE | 2018-08-06 08:01 | Diagnostic Imaging Report ---
Indication: Dyspnea. Findings: There is no focal pulmonary consolidation. The heart size and vascularity within normal limits. No effusion or pneumothorax. There is limited inspiratory volume crowding the lung markings particularly in the bases. Impression: Limited inspiratory volume but no acute pathological finding apparent. Dictated by: Dictated on workstation # [id number]
[2018-08-06] MEDS: FAMOTIDINE 20MG/2ML IV (PEPCID) IVP SCH ×2 (08:13→21:02)
[2018-08-06] MEDS ORDERED: FUROSEMIDE 40 MG/4 ML INJ (LASIX) IVP NR (08:45)
[2018-08-06] MEDS ORDERED: KCL 8 MEQ (MICRO K) TABLET PO NR (08:45)
[2018-08-06] MEDS ORDERED: predniSONE 10 MG TAB PO SCH (09:00)
[2018-08-06] MEDS: ACETAMINOPHEN 500 MG TAB (TYLENOL) PO PRN (10:44)
--- NOTE | 2018-08-06 11:10 | Physical Therapy Daily Note ---
PT Daily Note-Current Subjective Patient is observed up independently in her room using the toilet. Agrees to PT. Pain Numeric Pain Scale: 0-No Pain Location: No Pain Reported Mental Status Patient Orientation: Normal For Age Transfers Therapy Code Descriptions/Definitions Functional [place] Measure: 0=Not Assessed/NA 4=Minimal Assistance 1=Total Assistance 5=Supervision or Setup 2=Maximal Assistance 6=Modified [place] 3=Moderate Assistance 7=Complete [place] Therapy Quality Codes: 6 Independent with activity with or without an assistive device 5 Patient requires set up or clean up by helper. Patient completes activity by themselves 4 Supervision or touching assist (CGA). [place] provide cues , steadying assist 3 The helper provides less than half the effort to complete the activity 2 The helper provides more than half the effort to complete the activity 1 Dependent. The helper does all the effort to complete an activity 7 Patient refused to complete or attempt activity 9 The patient did not perform the activity before the current illness or injury 88 Not attempted due to Medical conditions or safety concerns Transfers (B, C, W/C) (FIM): 6 Scootin Sit to/from Stand: 6 Weight Bearing Right Lower Extremity: Right Full Weight Bearing Left Lower Extremity: Left Full Weight Bearing Gait Training Gait (FIM): 5 Distance (FIM): 3=150 ft Distance: 400' Gait Level of Assist: 5 Gait Assistive Device: FWW No deviation noted/steady functional gait sequence Exercises Seated Therapy Exercises: Ankle pumps, Long arc quads Seated Reps: 15 Assessment Patient is highly motivated with progress and reports feeling better. PT to increase activity as tolerated by patient. PT Prison Goals Specimen Collector Goals PT Specimen Collector Goals Time Frame: Aug 12, 2018 Transfers (B,C,W/C) (FIM): 7 Gait (FIM): 6 Gait distance (FIM): 3=150 ft Gait Assistive Device: FWW PT Plan Treatment/Plan Treatment Plan: Continue Plan of Care Treatment Plan: Bed Mobility, Education, Functional Activity Catie, Functional Strength, Gait, Safety, Therapeutic Exercise, Transfers Treatment Duration: Aug 12, 2018 Frequency: 6 times per week Estimated Hrs Per Day: .25 hour per day Patient and/or Family Agrees t: Yes Time/GCodes Time In: 1000 Time Out: 1011 Total Billed Treatment Time: 11 Total Billed Treatment 1 visit GT 11 min FLORINA BERNARD PT Aug 06, 2018 11:10
--- NOTE | 2018-08-06 14:00 | NUR ---
REPORT FROM JULISA GARCIA RN. ASSUMED CARE OF THE PATIENT AT THIS TIME. PT TO FLOOR VIA WHEELCHAIR. PATIENT AND HER SPOUSE DENY ANY NEEDS AT THIS TIME. WILL CONTINUE TO MONITOR
[2018-08-06] MEDS ORDERED: WATER (STERILE) FOR INJECTION 10 ML ONE ×2 (15:30→21:53)
[2018-08-06] MEDS ORDERED: CEFEPIME 1 GM (MAXIPIME) VIAL ONE ×2 (15:30→21:53)
--- NOTE | 2018-08-06 19:00 | Progress Note (SOAP) ---
Subjective Date Seen by a Provider: Aug 06, 2018 Time Seen by a Provider: 08:45 Subjective/Events-last exam Fwup acute sepsis, rash, dyspnea. Sitting up in chair. C/O some cough and shortness of air with minimal exertion. Did diurese well with IV lasix yesterday. BP improved. Focused Exam Lactate Level 08/03/18 23:45: Lactic Acid Level 1.78 08/04/18 11:25: Lactic Acid Level 2.86*H 08/04/18 13:25: Lactic Acid Level 1.81 Objective Exam Vital Signs Date Time Temp Pulse Resp B/P (MAP) Pulse Ox O2 Delivery O2 Flow Rate FiO2 08/06/18 16:00 97.1 70 18 132/67 (88) 96 Room Air 08/06/18 14:06 98.4 60 18 134/63 (86) 98 Room Air 08/06/18 12:53 63 08/06/18 12:34 97.8 56 18 121/65 (83) 96 Nasal Cannula 2.00 08/06/18 10:45 145/78 (100) 08/06/18 08:30 152/88 (109) 08/06/18 08:17 98.8 85 12 96 Room Air 08/06/18 08:00 96 Room Air 08/06/18 07:14 72 08/06/18 06:00 47 15 150/90 (110) 97 Nasal Cannula 2.00 08/06/18 05:00 45 16 130/75 (93) 94 Nasal Cannula 2.00 08/06/18 04:00 97.8 08/06/18 04:00 54 15 146/82 (103) 96 Nasal Cannula 2.00 08/06/18 04:00 99 Nasal Cannula 2.00 08/06/18 03:00 66 14 142/83 (102) 95 Nasal Cannula 2.00 08/06/18 02:00 61 17 152/77 (102) 95 Nasal Cannula 2.00 08/06/18 01:02 74 08/06/18 01:00 77 20 147/78 (101) 93 Nasal Cannula 2.00 08/06/18 00:00 66 15 147/87 (107) 95 Nasal Cannula 2.00 08/06/18 00:00 97.2 08/06/18 00:00 99 Nasal Cannula 2.00 08/05/18 23:38 71 13 95 Nasal Cannula 2.00 08/05/18 23:00 99 27 141/78 (99) 96 Room Air 08/05/18 22:00 71 21 137/78 (97) 92 Room Air 08/05/18 21:21 73 17 135/92 (106) 97 Room Air 08/05/18 20:00 99 Room Air 08/05/18 20:00 71 16 119/71 (87) Room Air 08/05/18 20:00 97.5 08/05/18 19:32 97.6 08/05/18 19:06 94 22 151/89 (109) 97 Room Air 08/05/18 19:00 85 I & O 08/06/18 07:00 Intake Total 1210 ml Output Total 2950 ml Balance -1740 ml Capillary Refill : Less Than 3 Seconds General Appearance: Mild Distress (conversational dyspnea) Neck: Supple Respiratory: Crackles (bases), Decreased Breath Sounds Cardiovascular: Regular Rate, Rhythm, Gallop/S4 Gastrointestinal: non tender, soft Extremity: Non Tender, No Calf Tenderness, No Pedal Edema Neurologic/Psychiatric: Alert, Oriented x3 Skin: Rash (to torso fading and pustules to back of neck appear to be drying up ) Results Lab Laboratory Tests 08/06/18 03:25: White Blood Count 23.8H, Red Blood Count 3.21L, Hemoglobin 10.0L, Hematocrit 30L , Mean Corpuscular Volume 94, Mean Corpuscular Hemoglobin 31, Mean Corpuscular Hemoglobin Concent 33, Red Cell Distribution Width 13.5, Platelet Count 326, Mean Platelet Volume 9.9, Neutrophils (%) (Auto) 94H, Lymphocytes (%) (Auto) 3L , Monocytes (%) (Auto) 4, Eosinophils (%) (Auto) 0, Basophils (%) (Auto) 0, Neutrophils # (Auto) 22.3H, Lymphocytes # (Auto) 0.7L, Monocytes # (Auto) 0.8, Eosinophils # (Auto) 0.0, Basophils # (Auto) 0.0, Sodium Level 143, Potassium Level 3.4L, Chloride Level 113H, Carbon Dioxide Level 21, Anion Gap 9, Blood Urea Nitrogen 18, Creatinine 0.83, Estimat Glomerular Filtration Rate > 60, BUN/ Creatinine Ratio 22, Glucose Level 120H, Calcium Level 9.0, Phosphorus Level 2.5 , Magnesium Level 1.9 Microbiology 08/04/18 Blood Culture - Preliminary, Resulted No growth 08/05/18 Gram Stain - Final, Resulted 08/05/18 Sputum Culture - Preliminary, Resulted Usual upper respiratory [place] 08/04/18 Urine Culture - Final, Complete NO GROWTH 08/04/18 Gram Stain - Final, Resulted 08/04/18 Eye Culture - Preliminary, Resulted Gram Pos Mixed Bacterial Dalton Assessment/Plan Assessment/Plan Assess & Plan/Chief Complaint 1. Acute Sepsis--on Maxipime/Vanc and pancultures negative so far, MRI of brain discussed, discussed with Dr. Finnegan and will hold on LP 2. Rash--lower extremity rash could have been drug induced as patient remembered she was taking amoxil prior to the onset of this rash but also viral etiology still a possibility 3. New Vesicular Rash to Nape of Neck--continue zovirax 4. Hypotension--resolved after IVFs 5. Dyspnea--Conversational and Exertional--repeat lasix x1 with extra potassium 6. Hypokalemia--on replacement protocol Clinical Quality Measures DVT/VTE Risk/Contraindication: Risk Factor Score Per Nursin RFS Level Per Nursing on Admit: 2=Moderate TOBY VAZQUEZ DO Aug 06, 2018 19:00
[2018-08-07 00:06] VITALS: BP 161/72
[2018-08-07] MEDS: diphenhydrAMINE 50 MG/ML INJ (BENADRYL) IVP SCH ×5 (00:08→21:53)
[2018-08-07] MEDS ORDERED: CEFEPIME 1 GM (MAXIPIME) VIAL ONE ×4 (02:36→21:46)
[2018-08-07] MEDS ORDERED: WATER (STERILE) FOR INJECTION 10 ML ONE ×4 (02:36→21:46)
[2018-08-07] MEDS: ACYCLOVIR INJECTION 800 MG in NS (IVPB) 250 ML IV SCH ×3 (03:19→19:46)
[2018-08-07] MEDS: CEFEPIME INJECTION 1,000 MG in WATER (STERILE) FOR INJECTION 10 ML IV SCH ×4 (03:19→21:50)
[2018-08-07 04:02] LABS: BASOPHILS % (AUTO) 0 % (0-10); EOSINOPHILS # (AUTO) 0.2 10^3/uL (0.0-0.3); EOSINOPHILS % (AUTO) 1 % (0-10); HEMATOCRIT 30 % (35-52); HEMOGLOBIN 9.9 G/DL (11.5-16.0); LYMPHOCYTES % (AUTO) 13 % (12-44); MEAN CORPUSCULAR HEMOGLOBIN 31 PG (25-34); MEAN CORPUSCULAR HGB CONC 33 G/DL (32-36); MEAN CORPUSCULAR VOLUME 94 FL (80-99); MEAN PLATELET VOLUME 9.9 FL (7.4-10.4); MONOCYTES # (AUTO) 1.4 X 10^3 (0.0-1.0); MONOCYTES % (AUTO) 9 % (0-12); NEUTROPHILS # (AUTO) 11.6 X 10^3 (1.8-7.8); NEUTROPHILS % (AUTO) 77 % (42-75); PLATELET COUNT 290 10^3/uL (130-400); RED CELL DISTRIBUTION WIDTH 13.2 % (10.0-14.5); WHITE BLOOD COUNT 15.1 10^3/uL (4.3-11.0)
[2018-08-07 04:24] LABS: BUN/CREATININE RATIO 18; CALCIUM 9.4 MG/DL (8.5-10.1); CARBON DIOXIDE 25 MMOL/L (21-32); CHLORIDE 109 MMOL/L (98-107); CREATININE SERUM 0.79 MG/DL (0.60-1.30); GFR ESTIMATED > 60; GLUCOSE 95 MG/DL (70-105); PHOSPHORUS 1.9 MG/DL (2.3-4.7); POTASSIUM 3.8 MMOL/L (3.6-5.0); SODIUM 144 MMOL/L (135-145)
--- NOTE | 2018-08-07 06:56 | Pulmonary Progress Note ---
Subjective Time Seen by a Provider: 06:54 Sepsis Event Evaluation Height, Weight, BMI Height: 5'1.00" Weight: 144lbs. 9.0oz. 65.351373vt; 26.0 BMI Method:Stated Focused Exam Lactate Level 08/04/18 11:25: Lactic Acid Level 2.86*H 08/04/18 13:25: Lactic Acid Level 1.81 Exam Exam Vital Signs Date Time Temp Pulse Resp B/P (MAP) Pulse Ox O2 Delivery O2 Flow Rate FiO2 08/07/18 01:00 50 08/07/18 00:06 98.4 60 16 161/72 (101) 97 Room Air 08/06/18 20:00 96 Room Air 08/06/18 19:28 98.7 63 18 162/64 (96) 96 Room Air 08/06/18 19:00 72 08/06/18 16:00 97.1 70 18 132/67 (88) 96 Room Air 08/06/18 14:06 98.4 60 18 134/63 (86) 98 Room Air 08/06/18 12:53 63 08/06/18 12:34 97.8 56 18 121/65 (83) 96 Nasal Cannula 2.00 08/06/18 10:45 145/78 (100) 08/06/18 08:30 152/88 (109) 08/06/18 08:17 98.8 85 12 96 Room Air 08/06/18 08:00 96 Room Air 08/06/18 07:14 72 I & O 08/07/18 07:00 Intake Total 2518 ml Output Total 5300 ml Balance -2782 ml Height & Weight Height: 5'1.00" Weight: 144lbs. 9.0oz. 65.726825tt; 26.0 BMI Method:Stated General Appearance: Mild Distress (conversational dyspnea) HEENT: Other Neck: Supple Respiratory: Crackles (bases), Decreased Breath Sounds Cardiovascular: Regular Rate, Rhythm, Gallop/S4 Capillary Refill: Less Than 3 Seconds Gastrointestinal: non tender, soft Extremity: Non Tender, No Calf Tenderness, No Pedal Edema Neurologic/Psychiatric: Alert, Oriented x3 Skin: Rash (to torso fading and pustules to back of neck appear to be drying up ) Lymphatic: No Adenopathy Results Lab Laboratory Tests 08/06/18 03:25 08/07/18 03:55 Assessment/Plan Assessment/Plan Severe Sepsis - doubt PNA, -Cefepime -Arriaga cultures pending -MRSA swab is negative influenza is negative - urine strep, and legionella Ag is negative Nausea - no abdominal pain - RUQ US pending New Vesicular Rash to Nape of Neck- - Zovirax, - MRI- reviewed Leukocytosis - pt is on steroids - improving HWAK - improved Acute renal failure with metabolic acidosis -Monitor 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 Hx of benign acoustic neuroma LORRAINE ELLIS DO Aug 07, 2018 06:56
--- NOTE | 2018-08-07 07:54 | Diagnostic Imaging Report ---
INDICATION: Dyspnea. COMPARISON: 01/03/2019. FINDINGS: Visualized lungs are clear. Posterior lower lobes are poorly evaluated by portable radiography. No pleural effusion or pneumothorax. Heart is normal in size. Normal pulmonary vasculature shadow. IMPRESSION: No acute process by portable radiography. Dictated by: Dictated on workstation # [id number]
[2018-08-07] MEDS: ACETAMINOPHEN 500 MG TAB (TYLENOL) PO PRN ×2 (08:06→17:18)
[2018-08-07 08:16] VITALS: BP 158/72
[2018-08-07] MEDS: FAMOTIDINE 20MG/2ML IV (PEPCID) IVP SCH ×2 (08:41→21:49)
[2018-08-07] MEDS: predniSONE 10 MG TAB PO SCH (09:17)
[2018-08-07] MEDS: amLODIPine 5 MG (NORVASC) TAB PO SCH (09:19)
--- NOTE | 2018-08-07 11:27 | Physical Therapy Daily Note ---
PT Daily Note-Current Subjective Pt was standing in room with and had just completed a shower. Pt reports she is feeling really well and will be dismissed for home tomorrow. Pt agrees to PT. Pain Numeric Pain Scale: 0-No Pain Location: No Pain Reported Mental Status Patient Orientation: Person, Place, Situation, Normal For Age Transfers Therapy Code Descriptions/Definitions Functional [place] Measure: 0=Not Assessed/NA 4=Minimal Assistance 1=Total Assistance 5=Supervision or Setup 2=Maximal Assistance 6=Modified [place] 3=Moderate Assistance 7=Complete [place] Therapy Quality Codes: 6 Independent with activity with or without an assistive device 5 Patient requires set up or clean up by helper. Patient completes activity by themselves 4 Supervision or touching assist (CGA). [place] provide cues , steadying assist 3 The helper provides less than half the effort to complete the activity 2 The helper provides more than half the effort to complete the activity 1 Dependent. The helper does all the effort to complete an activity 7 Patient refused to complete or attempt activity 9 The patient did not perform the activity before the current illness or injury 88 Not attempted due to Medical conditions or safety concerns Weight Bearing Right Lower Extremity: Right Full Weight Bearing Left Lower Extremity: Left Full Weight Bearing Gait Training Gait (FIM): 4 Distance (FIM): 3=150 ft Distance: 800' Gait Level of Assist: 4 Gait Persons Needed: 1 Gait Assistive Device: None Exercises Seated Therapy Exercises: Ankle pumps, Long arc quads, Hip flexion Seated Reps: 15 Assessment Current Status: Good Progress Pt was able to amb 800' with CGA and no AD. Pt does have balance deficits but pt reports that she always has and feels that this is her prior level. Pt able to perform transfers indep. Pt returned to room and performed seated LE ex in recliner. Pt has all needs met. PT Assortment Planner Goals Nursing Home Goals PT Nursing Home Goals Time Frame: Aug 12, 2018 Transfers (B,C,W/C) (FIM): 7 Gait (FIM): 6 Gait distance (FIM): 3=150 ft Gait Assistive Device: FWW PT Plan Problem List Problem List: Activity Tolerance, Functional Strength, Safety, Balance, Gait, ROM Treatment/Plan Treatment Plan: Continue Plan of Care Treatment Plan: Bed Mobility, Education, Functional Activity Catie, Functional Strength, Gait, Safety, Therapeutic Exercise, Transfers Treatment Duration: Aug 12, 2018 Frequency: 6 times per week Estimated Hrs Per Day: .25 hour per day Patient and/or Family Agrees t: Yes Safety Risks/Education Patient Education: Gait Training, Transfer Techniques, Correct Positioning, Safety Issues Teaching Recipient: Patient Teaching Methods: Demonstration, Discussion Response to Teaching: Reinforcement Needed Time/GCodes Time In: 1056 Time Out: 1110 Total Billed Treatment Time: 11 Total Billed Treatment 1 visit FA 14 min RAAD GONZALEZ PT Aug 07, 2018 11:27
[2018-08-07 11:42] VITALS: BP 117/59
[2018-08-07 16:59] VITALS: BP 143/71
--- NOTE | 2018-08-07 17:40 | Progress Note (SOAP) ---
Subjective Date Seen by a Provider: Aug 07, 2018 Time Seen by a Provider: 08:40 Subjective/Events-last exam Fwup acute sepsis, rash, dyspnea. Feels much better. Did diurese well with IV lasix yesterday. Not as short of air. Rash improving. BP increasing. Objective Exam Vital Signs Date Time Temp Pulse Resp B/P (MAP) Pulse Ox O2 Delivery O2 Flow Rate FiO2 08/07/18 16:59 98.0 68 16 143/71 (95) 98 Room Air 08/07/18 13:01 71 08/07/18 11:42 99.1 66 18 117/59 (78) 97 Room Air 08/07/18 08:16 99.1 66 18 158/72 (100) 98 Room Air 08/07/18 08:00 96 Room Air 08/07/18 07:16 59 08/07/18 01:00 50 08/07/18 00:06 98.4 60 16 161/72 (101) 97 Room Air 08/06/18 20:00 96 Room Air 08/06/18 19:28 98.7 63 18 162/64 (96) 96 Room Air 08/06/18 19:00 72 I & O 08/07/18 07:00 Intake Total 2518 ml Output Total 5300 ml Balance -2782 ml Capillary Refill : Less Than 3 Seconds General Appearance: No Apparent Distress Neck: Supple Cardiovascular: Regular Rate, Rhythm Gastrointestinal: normal bowel sounds, non tender, soft Extremity: Non Tender, No Calf Tenderness, No Pedal Edema Neurologic/Psychiatric: Alert, Oriented x3 Skin: Warm/Dry Results Lab Laboratory Tests 08/07/18 03:55: White Blood Count 15.1H, Red Blood Count 3.19L, Hemoglobin 9.9L, Hematocrit 30L , Mean Corpuscular Volume 94, Mean Corpuscular Hemoglobin 31, Mean Corpuscular Hemoglobin Concent 33, Red Cell Distribution Width 13.2, Platelet Count 290, Mean Platelet Volume 9.9, Neutrophils (%) (Auto) 77H, Lymphocytes (%) (Auto) 13 , Monocytes (%) (Auto) 9, Eosinophils (%) (Auto) 1, Basophils (%) (Auto) 0, Neutrophils # (Auto) 11.6H, Lymphocytes # (Auto) 2.0, Monocytes # (Auto) 1.4H, Eosinophils # (Auto) 0.2, Basophils # (Auto) 0.0, Sodium Level 144, Potassium Level 3.8, Chloride Level 109H, Carbon Dioxide Level 25, Anion Gap 10, Blood Urea Nitrogen 14, Creatinine 0.79, Estimat Glomerular Filtration Rate > 60, BUN/ Creatinine Ratio 18, Glucose Level 95, Calcium Level 9.4, Phosphorus Level 1.9L , Magnesium Level 2.0 Microbiology 08/04/18 Blood Culture - Preliminary, Resulted No growth 08/05/18 Gram Stain - Final, Complete 08/05/18 Sputum Culture - Final, Complete Usual upper respiratory [place] 08/04/18 Urine Culture - Final, Complete NO GROWTH 08/04/18 Gram Stain - Final, Resulted 08/04/18 Eye Culture - Preliminary, Resulted Gram Pos Mixed Bacterial [place] Assessment/Plan Assessment/Plan Assess & Plan/Chief Complaint 1. Acute Sepsis--on Maxipime/Vanc and pancultures negative so far, WBC decreased to 15 today 2. Rash--lower extremity rash could have been drug induced as patient remembered she was taking amoxil prior to the onset of this rash but also viral etiology still a possibility 3. New Vesicular Rash to Nape of Neck--continue zovirax, improving 4. Hypotension--resolved 5. Dyspnea--Conversational and Exertional--resolved 6. Hypokalemia--improved 7. Hypertension--restart amlodopine 8. Home tomorrow if WBC count continues to trend down Clinical Quality Measures DVT/VTE Risk/Contraindication: Risk Factor Score Per Nursin RFS Level Per Nursing on Admit: 2=Moderate TOBY VAZQUEZ DO Aug 07, 2018 17:40
[2018-08-07 19:50] VITALS: BP 148/71
[2018-08-07 23:39] VITALS: BP 141/65
[2018-08-08] MEDS ORDERED: WATER (STERILE) FOR INJECTION 10 ML ONE (03:36)
[2018-08-08] MEDS ORDERED: CEFEPIME 1 GM (MAXIPIME) VIAL ONE (03:36)
[2018-08-08] MEDS: CEFEPIME INJECTION 1,000 MG in WATER (STERILE) FOR INJECTION 10 ML IV SCH ×2 (03:40→09:14)
[2018-08-08] MEDS: ACYCLOVIR INJECTION 800 MG in NS (IVPB) 250 ML IV SCH ×2 (03:41→11:35)
[2018-08-08] MEDS: diphenhydrAMINE 50 MG/ML INJ (BENADRYL) IVP SCH ×2 (03:41→11:37)
[2018-08-08] MEDS: ACETAMINOPHEN 500 MG TAB (TYLENOL) PO PRN (03:49)
[2018-08-08 04:00] VITALS: BP 147/70
[2018-08-08] MEDS ORDERED: TROUGH ORDER-PHARMACY XX ONE (06:00)
[2018-08-08 07:03] LABS: BASOPHILS % (AUTO) 0 % (0-10); EOSINOPHILS # (AUTO) 0.2 10^3/uL (0.0-0.3); EOSINOPHILS % (AUTO) 2 % (0-10); HEMATOCRIT 28 % (35-52); HEMOGLOBIN 9.2 G/DL (11.5-16.0); LYMPHOCYTES # (AUTO) 2.4 X 10^3 (1.0-4.0); LYMPHOCYTES % (AUTO) 21 % (12-44); MEAN CORPUSCULAR HEMOGLOBIN 31 PG (25-34); MEAN CORPUSCULAR HGB CONC 33 G/DL (32-36); MEAN CORPUSCULAR VOLUME 94 FL (80-99); MEAN PLATELET VOLUME 9.9 FL (7.4-10.4); MONOCYTES # (AUTO) 1.2 X 10^3 (0.0-1.0); MONOCYTES % (AUTO) 10 % (0-12); NEUTROPHILS # (AUTO) 7.7 X 10^3 (1.8-7.8); NEUTROPHILS % (AUTO) 67 % (42-75); PLATELET COUNT 285 10^3/uL (130-400); RED CELL DISTRIBUTION WIDTH 12.8 % (10.0-14.5); WHITE BLOOD COUNT 11.5 10^3/uL (4.3-11.0)
[2018-08-08 07:20] LABS: BUN/CREATININE RATIO 18; CALCIUM 9.1 MG/DL (8.5-10.1); CARBON DIOXIDE 26 MMOL/L (21-32); CHLORIDE 106 MMOL/L (98-107); CREATININE SERUM 0.77 MG/DL (0.60-1.30); GFR ESTIMATED > 60; GLUCOSE 81 MG/DL (70-105); MAGNESIUM 1.9 MG/DL (1.8-2.4); PHOSPHORUS 2.6 MG/DL (2.3-4.7); POTASSIUM 3.5 MMOL/L (3.6-5.0); SODIUM 141 MMOL/L (135-145)
[2018-08-08 07:31] LABS: VANCOMYCIN,TROUGH < 0.4 UG/ML (10.0-20.0)
[2018-08-08 08:00] VITALS: BP 156/73
[2018-08-08] MEDS ORDERED: CEFEPIME INJECTION 1,000 MG in WATER (STERILE) FOR INJECTION 10 ML IV SCH (08:30)
--- NOTE | 2018-08-08 08:43 | Physician Query Clarification ---
PQ-Conflicting Diagnosis Admission/Discharge Admission Date: Aug 04, 2018 at 05:31 Discharge Date: The medical record reflects the following clinical scenario: History/Risk Factors: Sepsis Metabolic acidosis Acute renal failure diagnosed by Dr. Finnegan Clinical Findings: 08/03 creatinine 1.40, 08/04 lactic acid 2.86, BP 118/55. Treatment: IV fluids Question: Do you agree with the impression of the Severe Sepsis per Dr. Finnegan. Please document a response below. PHYSICIAN RESPONSE Do you agree w/Consulting Dx?: Yes In responding to this query, please exercise your independent professional judgment. The purpose of this communication is to more accurately reflect the complexity of your patients condition. The fact that a question is asked does not imply that any particular answer is desired or expected. Thank you for your timely response to this clarification. Requestors name: Mindi Brooks [facility] Phone # ext [phone] or [phone] THIS PHYSICIAN QUERY FORM IS A PERMANENT PART OF THE MEDICAL RECORD MINDI BROOKS Aug 08, 2018 08:43 TOBY VAZQUEZ DO Aug 09, 2018 12:42
--- NOTE | 2018-08-08 08:54 | Physician Query Clarification ---
PQ-Further Specificity Admission/Discharge Admission Date: Aug 04, 2018 at 05:31 Discharge Date: The medical record reflects the following clinical scenario: History/Risk Factors: Sepsis Rash Clinical Findings:Fever, headache, myalgia, orthopnea, dyspnea, nausea. Treatment: IV Cefepime, IV Solu-Medrol, Zofran 4 mg. Question: Can you further specify Etiology of Sepsis per the clinical indicators above? Please document below. 1. Sepsis of viral etiology. 2. Sepsis due to unspecified infection. 3. Other, with explanation of the clinical findings. 4. Clinically undetermined, no explanation for the clinical findings. PHYSICIAN RESPONSE Can you specify per above: 1 In responding to this query, please exercise your independent professional judgment. The purpose of this communication is to more accurately reflect the complexity of your patients condition. The fact that a question is asked does not imply that any particular answer is desired or expected. Thank you for your timely response to this clarification. Requestors name: Mindi Brooks [facility] Phone # ext [phone] or [phone]. THIS PHYSICIAN QUERY FORM IS A PERMANENT PART OF THE MEDICAL RECORD MINDI BROOKS Aug 08, 2018 08:54 TOBY VAZQUEZ DO Aug 09, 2018 12:42
[2018-08-08] MEDS: FAMOTIDINE 20MG/2ML IV (PEPCID) IVP SCH (09:14)
[2018-08-08] MEDS: amLODIPine 5 MG (NORVASC) TAB PO SCH (09:15)
[2018-08-08] MEDS: predniSONE 10 MG TAB PO SCH (09:17)
--- NOTE | 2018-08-08 09:38 | Physical Therapy Daily Note ---
PT Daily Note-Current Subjective Pt standing up in room and agrees to PT. Pain Numeric Pain Scale: 0-No Pain Location: No Pain Reported Mental Status Patient Orientation: Person, Place, Situation, Normal For Age Transfers Therapy Code Descriptions/Definitions Functional [facility] Measure: 0=Not Assessed/NA 4=Minimal Assistance 1=Total Assistance 5=Supervision or Setup 2=Maximal Assistance 6=Modified [facility] 3=Moderate Assistance 7=Complete [facility] Therapy Quality Codes: 6 Independent with activity with or without an assistive device 5 Patient requires set up or clean up by helper. Patient completes activity by themselves 4 Supervision or touching assist (CGA). [place] provide cues , steadying assist 3 The helper provides less than half the effort to complete the activity 2 The helper provides more than half the effort to complete the activity 1 Dependent. The helper does all the effort to complete an activity 7 Patient refused to complete or attempt activity 9 The patient did not perform the activity before the current illness or injury 88 Not attempted due to Medical conditions or safety concerns Transfers (B, C, W/C) (FIM): 7 Sit to/from Stand: 7 Weight Bearing Right Lower Extremity: Right Full Weight Bearing Left Lower Extremity: Left Full Weight Bearing Gait Training Gait (FIM): 4 Distance (FIM): 3=150 ft Distance: 800' Gait Level of Assist: 4 Gait Persons Needed: 1 Gait Assistive Device: None Exercises Seated Therapy Exercises: Ankle pumps, Long arc quads Seated Reps: 15 Assessment Current Status: Good Progress Pt was able to amb with no AD 800' and CGA for safety. Pt balance during amb seemed better than yesterday. Pt reported that she is more tired today than yesterday and is hoping to be dismissed home today. Pt returned to room and performed AP and RLE LAQ when entered room. Pt is with and in room. PT Long-Term Goals Long-Term Goals PT Long-Term Goals Time Frame: Aug 12, 2018 Transfers (B,C,W/C) (FIM): 7 Gait (FIM): 6 Gait distance (FIM): 3=150 ft Gait Assistive Device: FWW PT Plan Problem List Problem List: Activity Tolerance, Functional Strength, Safety, Balance, Gait, ROM Treatment/Plan Treatment Plan: Continue Plan of Care Treatment Plan: Bed Mobility, Education, Functional Activity Catie, Functional Strength, Gait, Safety, Therapeutic Exercise, Transfers Treatment Duration: Aug 12, 2018 Frequency: 6 times per week Estimated Hrs Per Day: .25 hour per day Patient and/or Family Agrees t: Yes Time/GCodes Time In: 832 Time Out: 842 Total Billed Treatment Time: 10 Total Billed Treatment 1 visit FA 10 min FLORINA BERNARD PT Aug 08, 2018 09:37
[2018-08-08] MEDS ORDERED: PRD10T PO (10:06)
[2018-08-08] MEDS ORDERED: ACYC800T7 PO (10:06)
[2018-08-08] MEDS ORDERED: CEFD300C3 PO (10:07)
--- NOTE | 2018-08-08 10:08 | Discharge Inst-Simple/Standard ---
Discharge Inst-Standard Discharge Medications New, Converted or Re-Newed RX: Transmitted to Pharmacy Patient Instructions/Follow Up Plan of Care/Instructions/FU: Fwup 1 week Activity as Tolerated: Yes Discharge Diet: Cardiac Diet Planned Outpatient Orders/Ref. Pneu Vac Indicated: Yes TOBY VAZQUEZ DO Aug 08, 2018 10:08
[2018-08-08 12:00] VITALS: BP 109/94
--- NOTE | 2018-08-08 12:45 | NUR ---
DISCHARGE INSTRUCTIONS REVIEWED WITH PATIENT AND . PATIENT VERBALIZES UNDERSTANDING. IV DISCONTINUED. CATHETER TIP INTACT. PATIENT DENIES ANY PAIN OR OTHER COMPLAINTS. TELEMETRY REMOVED.
[2018-08-08 13:12] VITALS: BP 109/94
--- NOTE | 2018-08-08 17:36 | Discharge Summary ---
Diagnosis/Chief Complaint Date of Admission Aug 04, 2018 at 05:31 Date of Discharge Aug 08, 2018 at 13:06 Discharge Date: Aug 08, 2018 Discharge Diagnosis 1. Acute Sepsis--Due to Viral 2. Rash--Viral Exanthem 3. New Vesicular Rash to Nape of Neck--Viral Xanthem 4. Hypotension--resolved 5. Dyspnea--Conversational and Exertional from Fluid Overload--resolved 6. Hypokalemia--improved 7. Hypertension--stable Discharge Summary Hospital Course Hospital Course Mrs. Singletary is a 63-year-old white female who reported that she felt well when she went to bed Sunday evening. She woke up Sunday feeling quite weak. She went to the bathroom feeling feverish and reporting some myalgia with low-grade headache. We'll standing at the sink became faint and passed out. Her was there was able to help her to the ground such that there was no reported trauma. There was no reported seizure-type activity. A family member is I believe intensive care unit nurse and they did get blood pressures which were in the 70-80 systolic range. She noted feeling itchy as well and by the afternoon had noted a rash on her chest and abdomen spreading down to her thighs. She reportedly had a temperature of 101 with some mild chills but denied Reiger's. Blood pressure continued to be low and she finally consented to being brought to the emergency room where was noted that she was hypotensive with a white count of 22,000 and left shift. She apparently had exposure to an diagnosed with RSV roughly 7-10 days ago that did require hospitalization. She's not aware of any other sick contacts. She was admitted to the ICU and started on Cefepime and Vancomycin and pancultures were done. She was started on IV solumedrol due to her rash being pruritic. She continued to be hypotensive so she was given aggressive IVFs after which her blood pressure improved but she was then dyspneic with conversation and minimal exertion with fine crackles in her bases. She was given a dose of IV lasix with oral potassium 2 days in a row and she diuresed well with these and her dyspnea improved. She was also on routine potassium, magnesium and phosphorus replacement protocols per ICU standards. Zovirax was added IV after a fine pustular rash was found to the back of her neck. A MRI of the brain was also done which showed no evidence of KNIT TUBING DYER shunt inflammation or dysfunction. A lumbar puncture was considered but as the patient was clinically improving, it was decided to hold on the lumbar puncture. All her cultures were negative and her WBC count started trending downward after addition of the IV zovirax as well as tapering of her IV steroids. He rash improved and her only complaint was of a headache as her blood pressure started to rise. Her amlodopine was restarted for her blood pressure. Her WBC count peaked on hospital day #3 at 24 ,000 but was down to 11,500 by the day of discharge. She was up ambulating with PT and feeling well and was anxious to go home. She will be sent home on oral zovirax, cefdinir and a prednisone taper and will resume her previous home BP medications. She will followup with me in my office in 1 week. Labs Laboratory Tests 08/06/18 03:25: White Blood Count 23.8H, Red Blood Count 3.21L, Hemoglobin 10.0L, Hematocrit 30L , Neutrophils (%) (Auto) 94H, Lymphocytes (%) (Auto) 3L, Neutrophils # (Auto) 22.3H, Lymphocytes # (Auto) 0.7L, Potassium Level 3.4L, Chloride Level 113H, Glucose Level 120H 08/07/18 03:55: White Blood Count 15.1H, Red Blood Count 3.19L, Hemoglobin 9.9L, Hematocrit 30L , Neutrophils (%) (Auto) 77H, Neutrophils # (Auto) 11.6H, Chloride Level 109H, Monocytes # (Auto) 1.4H, Phosphorus Level 1.9L 08/08/18 05:37: White Blood Count 11.5H, Red Blood Count 2.97L, Hemoglobin 9.2L, Hematocrit 28L , Potassium Level 3.5L, Monocytes # (Auto) 1.2H, Vancomycin Level Trough < 0.4L Procedures None. Discharge Physical Examination Allergies: Coded Allergies: No Known Drug Allergies (Unverified , 08/03/18) Vitals & I&Os Vital Signs Date Time Temp Pulse Resp B/P (MAP) Pulse Ox O2 Delivery O2 Flow Rate FiO2 08/08/18 13:12 73 18 109/94 93 Room Air 08/08/18 12:00 97.0 08/06/18 12:34 2.00 General Appearance: Alert, Oriented X3, Cooperative, No Acute Distress Respiratory: Clear to Auscultation Cardiovascular: Regular Rate Abdominal: Normal Bowel Sounds, Soft, No Tenderness Extremities: No Clubbing, No Cyanosis, No Edema Skin: Other (rashes drying up) Psych/Mental Status: Mental Status NL, Mood NL Discharge Home Medications Reviewed and agree with Discharge Medication list on patient's Discharge Instruction sheet Instructions to Patient/Family Please see electronic discharge instructions given to patient. Clinical Quality Measures DVT/VTE Risk/Contraindication: Risk Factor Score Per Nursin RFS Level Per Nursing on Admit: 2=Moderate TOBY VAZQUEZ DO Aug 08, 2018 17:36
== END 2018-08-08 13:06 | disposition home or self-care (01) | DRG 872 ==
LOC: ER 22:29 → ICU 08-04 02:35 → OBSVTOIN 08-04 05:31 → 4TH 08-06 14:00
PROVIDERS: ADMIT Internal Medicine; ATTEND Internal Medicine
DX: A41.89 Other specified sepsis (principal); R65.20 Severe sepsis without septic shock; E87.2 Acidosis; N17.9 Acute kidney failure, unspecified; T78.2XXA Anaphylactic shock, unspecified, initial encounter; B97.89 Other viral agents as the cause of diseases classified elsewhere; E86.0 Dehydration; R06.00 Dyspnea, unspecified; R06.01 Orthopnea; R60.0 Localized edema; L27.0 Generalized skin eruption due to drugs and medicaments taken internally; T36.0X5A Adverse effect of penicillins, initial encounter; B09 Unspecified viral infection characterized by skin and mucous membrane lesions; I10 Essential (primary) hypertension; E87.6 Hypokalemia; K21.9 Gastro-esophageal reflux disease without esophagitis; G62.9 Polyneuropathy, unspecified; R29.810 Facial weakness; R54 Age-related physical debility; Z98.2 Presence of cerebrospinal fluid drainage device; Z86.011 Personal history of benign neoplasm of the brain; Z87.11 Personal history of peptic ulcer disease
CPT/HCPCS: 36415; 70551; 71045; 71046; 76700; 80048; 80053; 80202; 81000; 82962; 83605; 83735; 84100; 84439; 84443; 84481; 85007; 85025; 85027; 86141; 87040; 87070; 87081; 87088; 87205; 87430; 87449; 87804; 87899; G0378

== ENCOUNTER → 2019-06-10 | Outpatient (CLI) | payer OTHER ==
[~2019-06-10] MED LIST: ACYC800T7 PO; AMLO5TAB9; AMLO5TAB9 PO; BENA20TA7; BENA20TA7 PO; CEFD300C3 PO; LIFI1DRO OU; PRD10T PO
--- NOTE | 2019-06-10 11:11 | Diagnostic Imaging Report ---
INDICATION: Postmenopausal screening for osteoporosis. COMPARISON: None. FINDINGS: AP Spine L1-L4: [BMD (g/cm2): 0.810] [T-Score: -3.3] [Z-Score: -1.5] [BMD Previous: na] [BMD % Change: na] LT Hip Neck: [BMD (g/cm2): 0.924] [T-Score: -0.8] [Z-Score: 0.7] LT Hip Total: [BMD (g/cm2):0.989] [T-Score:-0.2] [Z-Score: 1.1] [BMD Previous: na] [BMD % Change: na] RT Hip Neck: [BMD (g/cm2):0.837] [T-Score:-1.4] [Z-Score:0.1] RT Hip Total: [BMD (g/cm2):0.893] [T-score:-0.9] [Z-Score:0.4] [BMD Previous:na] [BMD % Change:na] *Indicates significant change from prior examination based on 95% confidence level. World Health Organization criteria for BMD interpretation classify patients as Normal (T-score at or above -1.0), Osteopenic (T-score between -1.0 and -2.5) or Osteoporotic (T-score at or below -2.5). LIMITATIONS AND MODIFICATION: None. FRACTURE RISK (FRAX SCORE): The ten year probability of (%): Major Osteoporotic Fracture: [8.8] Hip Fracture: [0.9] IMPRESSION: 1. Osteopenia (Low bone mass). 2. Baseline examination. 3. See below National Osteoporosis Foundation guidelines on when to potentially initiate pharmacologic therapy. Based on the National Osteoporosis Foundation Guidelines, pharmacologic treatment should be initiated in any of the following, unless clinical conditions suggest otherwise: * Any patient with prior fragility fracture of the hip or vertebrae. A spine fracture indicates 5X risk for subsequent spine fracture and 2X risk for subsequent hip fracture. * Osteoporosis (T-score <-2.5). * Postmenopausal women and men age 50 and older with low bone mass/osteopenia (T-score between -1.0 and -2.5) by DXA and 10-year major osteoporotic fracture greater than 20% or a 10-year probability of hip fracture greater than 3%. These fracture risks are supplied above in the FRAX score, if applicable. * Clinician judgment and/or patient preferences may indicate treatment for people with 10-year fracture probabilities above or below these levels. Dictated by: Dictated on workstation # [id number]
== END ==
LOC: RAD 10:10
PROVIDERS: ATTEND Family Medicine
DX: M85.89 Other specified disorders of bone density and structure, multiple sites (principal)
CPT/HCPCS: 77080